=== PATIENT | female | born 1990 | race Caucasian/White ===

== ENCOUNTER 2022-05-18 11:33 | Emergency (ER) | payer MEDICAID, SELFPAY ==
--- NOTE | ~2022-05-18 | XR_ITS ---
EXAMINATION: XR CHEST 2 VIEWS CLINICAL INFORMATION: Chest pain. COMPARISON: None. TECHNIQUE: Frontal and lateral views of the chest were obtained. FINDINGS: The heart, great vessels, pulmonary vasculature and mediastinum are normal. The lungs show no focal infiltrate, effusion or pneumothorax. There is no acute osseous abnormality. XR/XR chest 2V IMPRESSION: No active cardiopulmonary disease.
--- NOTE | 2022-05-18 11:35 | ECG_ITS ---
Test Reason : chest pain Blood Pressure : / mmHG Vent. Rate : 086 BPM Atrial Rate : 086 BPM P-R Int : 132 ms QRS Dur : 080 ms QT Int : 342 ms P-R-T Axes : 076 072 033 degrees QTc Int : 409 ms Normal sinus rhythm with sinus arrhythmia Nonspecific ST abnormality Abnormal ECG No previous ECGs available Referred By: Generic ED Physician Electronically Signed By:RICHA POLK
[2022-05-18 11:58] VITALS: BP 139/96; PULSE 103; RESP 16; TEMP 37.2; O2SAT 100; BMI 25.1
--- NOTE | 2022-05-18 12:00 | ED.CHESTPAIN ---
HPI - Chest Pain General Chief Complaint: Chest Pain Stated Complaint: Chest Pain Time Seen by Provider: 05/18/22 11:55 Source: patient Mode of arrival: ambulatory History of Present Illness HPI narrative: 31-year-old female with no significant past medical history presents to the ED complaining of intermittent substernal chest pressure/tightness radiating to neck x5 days which became more constant the past few days. Patient was sent in from PCPs office for CP and abnormal EKG. Patient admits pain worse with exertion, walking up the stairs, and leaning forward. Reports father with history of MT, no personal history of heart disease. Denies oral OCPs, cigarette smoking, recent travel, SOB, pedal edema, nausea /vomiting MD complaint: chest pain Related Data Allergies Allergy/AdvReac Type Severity Reaction Status Date / Time No Known Allergies Allergy Verified 05/18/22 12:01 Review of Systems Review of Systems: Constitutional: No Fever, No Chills, No Fatigue, No Malaise ENT/Mouth: No Ear Pain, No Nasal Congestion, No sore throat, No Rhinorrhea, No Swallowing Difficulty Eyes: No Eye Pain, No Swelling, No Redness Cardiovascular: + Chest Pain, No SOB, No Dyspnea on Exertion, No Orthopnea, No Edema, No Palpitations Respiratory: No Cough, No Sputum, No Dyspnea Gastrointestinal: No Nausea, No Vomiting, No Diarrhea, No Constipation, No Abdominal pain Genitourinary: No Dysuria, No Urinary Frequency, No Hematuria, No Flank Pain Musculoskeletal: No joint pain, No Myalgias, No Joint Swelling Skin: No Skin Lesions, No rash Neuro: No Weakness, No Numbness, No Paresthesias, No Loss of Consciousness, No Dizziness, No Headache Yes all other systems are reviewed and are negative Constitutional: Constitutional: Reports as per [facility] Past Medical History Attestation statement: The following information was validated with the patient. Family History Family History (Updated 05/18/22 @ 12:59 by Niraj Garcia MD) Father Coronary artery disease Social History Social History Smoked in Last 30 Days: No Use of substances other than those prescribed or required for medical reasons: No Advance Directives: No Advance Directives Information Provided: Yes Patient : No Physical Exam Vital Signs: Vital Signs: Last Vital Signs Temp 99.2 F 05/18/22 16:11 Pulse 62 05/18/22 16:11 Resp 16 05/18/22 16:11 BP 116/71 05/18/22 16:11 Pulse Ox 97 05/18/22 16:11 O2 Del Method 05/18/22 16:11 BMI result Body Mass Index 25.4 Const: General: cooperative, healthy appearing and no acute distress Orientation/consciousness: patient oriented x3 Limitations: no limitations HEENT: Head: Yes normal to inspection and Yes atraumatic Ears: hearing grossly normal bilaterally General nose exam: Normal external nose present Face and sinus: Yes normal facial exam Eyes: General: appearance normal, both eyes and all related structures EOM: EOMs intact bilaterally Neck: Neck: Yes normal visual inspection and Yes no meningeal signs Chest: Chest palpation & inspection: normal inspection of the chest, no crepitus and no tenderness Resp: Effort & Inspection: normal respiratory effort and no respiratory distress Auscultation: clear to auscultation bilaterally, no crackles, no rales, no rhonchi and no wheezes Cardio: Rate: regular rate and tachycardic Heart sounds: S1 normal heart sound present and S2 normal heart sound present GI: Inspection: Yes normal to inspection Palpation (GI): Soft to palpation, nontender, no guarding and not rigid Skin: Rashes: no rashes Wounds: no wounds Neuro: General: patient oriented x3, tone normal and no meningeal signs Gait exam (Neuro): Normal gait present Extrem: General: Yes normal to inspection, Yes no pedal edema and Yes no calf tenderness Course Course Course Narrative: -1233-- consult cardiology Dr. Garcia who recommended stat echo and initiating patient on heparin as well as 50 mg of metoprolol and atorvastatin - [facility] Dr. Garcia arranged transfer/accepting, however waiting bed placement, no available beds at this time. - initial troponin 8.8 will obtain a repeat XR chest 2V IMPRESSION: No active cardiopulmonary disease.? 1500--Transthoracic Echocardiogram Conclusions: - The left ventricular systolic function is normal.? The visually estimated ejection fraction is between 60-65%. ? - The apical septum, mid inferoseptal, and mid anteroseptal? ? ? segments are hypokinetic.? - No obvious valvular pathology seen on this study. > awaiting bed placement at [facility]. accepting physician Dr. Penny Medications Administered Generic Name Dose Route Start Last Admin Trade Name Freq PRN Reason Stop Dose Admin Heparin Sodium/Sodium Chloride 25,000 unit in 250 mls @ 0 mls/hr 05/18/22 14:00 05/18/22 14:03 Heparin Sodium,Porcine/1/2ns IVCONT 12 units/kg/hr .Q0M GIFTY 7.82 mls/hr Administration Protocol Per Protocol Discontinued Medications Generic Name Dose Route Start Last Admin Trade Name Freq PRN Reason Stop Dose Admin Al Hydroxide/Mg Hydroxide 30 ml 05/18/22 12:06 05/18/22 12:32 Magnesium Hydrox/Alum Hydrox 30 Ml Oral.Susp PO 05/18/22 12:07 30 ml ONCE ONE Administration Aspirin 324 mg 05/18/22 12:20 05/18/22 12:31 Aspirin 81 Mg Tab.Chew PO 05/18/22 12:21 324 mg ONCE ONE Administration Atorvastatin Calcium 80 mg 05/18/22 13:26 05/18/22 13:59 Atorvastatin Calcium 80 Mg Tablet PO 05/18/22 13:27 80 mg ONCE ONE Administration Metoprolol Tartrate 50 mg 05/18/22 12:49 05/18/22 13:59 Metoprolol Tartrate 50 Mg Tablet PO 05/18/22 12:50 50 mg ONCE ONE Administration Protocol Morphine Sulfate 2 mg 05/18/22 12:20 05/18/22 12:33 Morphine Sulfate 2 Mg/Ml Cartridge IVPUSH 05/18/22 12:21 2 mg ONCE ONE Administration Protocol Ondansetron HCl 4 mg 05/18/22 12:06 05/18/22 12:31 Ondansetron Hcl 4 Mg/2 Ml Vial IVPUSH 05/18/22 12:07 4 mg ONCE ONE Administration Medical Decision Making Medical Decision Making MDM Narrative: 31-year-old female with no significant past medical history presents to the ED complaining of intermittent substernal chest pressure/tightness radiating to neck x5 days which became more constant the past few days. on exam mildly tachycardic to 103, chest pain not reproducible, lungs CTA, nontoxic appearing, EKG from office concerning, EKG in the ED with resolved changes, will consult Cardiology immediately. concern for ACS vs possible pericarditis/myocarditis. lower suspicion for PE/dissection or CHF plan: EKG, labs, CXR, IV morphine, aspirin, cardiology consult Please refer to course for remaining clinical decision making, interpretation of labs/imaging results, and discussions with consultants and/or family members. Differential Diagnosis Differential Diagnoses: The differential diagnosis associated with the presentation includes as above Consult Healthcare Provider Management of the patient was discussed with: Marketing Producer Lab Data [facility] Lab Attestation statement: I reviewed the patient's lab results. 05/18/22 12:21 05/18/22 12:21 Labs: Lab Results 05/18/22 05/18/22 05/18/22 Range/Units 12:20 12:21 12:21 WBC 5.7 (4.8-10.8) X10*3/uL RBC 4.39 (4.20-5.50) X10*6/uL Hgb 12.4 (12.0-16.0) g/dl Hct 36.1 L (37.0-47.0) % MCV 82.2 (80.0-98.0) fL MCH 28.2 (27.0-33.0) pg MCHC 34.3 (31.0-35.0) g/dl RDW 12.3 (11.0-16.0) % Plt Count 257 (160-400) X10*3/uL MPV 9.2 L (9.4-12.3) fL Immature Gran % (Auto) 0.4 (0.0-0.4) % Neut % (Auto) 75.6 H (45-73) % Lymph % (Auto) 17.8 L (20-40) % [place] % (Auto) 5.1 (2-11) % Eos % (Auto) 0.7 (0-4) % Baso % (Auto) 0.4 (0-2) % Lymph # (Auto) 1.0 L (1.2-4.9) X10*3/uL [place] # (Auto) 0.3 (0.1-1.2) X10*3/uL Eos # (Auto) 0.0 (0.0-0.4) X10*3/uL Baso # (Auto) 0.0 (0.0-0.2) X10*3/uL Abs Immat Gran (auto) 0.02 (0.00-0.03) X10*3/uL Absolute Neuts (auto) 4.3 (2.0-8.3) x10*3/uL Absolute Nucleated RBC 0.000 (0.0-0.012) X10*3/uL Nucleated RBC % (auto) 0.0 (0.0-0.2) /100WBC ESR 10 (0-20) MM/HR PT (10.0-13.1) SEC INR (0.9-1.1) APTT (26.0-36.4) SEC Sodium (135-145) mmol/L Potassium (3.3-5.1) mmol/L Chloride (96-108) mmol/L Carbon Dioxide (22-29) mmol/L Anion Gap (12-20) BUN (9-16) mg/dL Creatinine (0.5-1.4) mg/dL Estim Creat Clear Calc Estimated GFR Random Glucose (60-115) mg/dL Calcium (8.4-10.2) mg/dL Magnesium (1.6-2.6) mg/dL Total Bilirubin (0.0-1.0) mg/dL Direct Bilirubin (0.0-0.5) mg/dL AST (5-31) U/L ALT (0-31) U/L Alkaline Phosphatase (39-117) U/L Troponin I High Sens (<3.5-17.0) ng/L C-Reactive Protein (< or = 0.50) mg/dL B-Natriuretic Peptide 23 (<100) pg/mL Total Protein (6.5-8.0) g/dL Albumin (3.5-5.0) g/dL Lipase (8-78) U/L Beta HCG, Quant mIU/mL Urine Test (NEGATIVE) COVID-19 (ALLYN) (Negative) COVID-19 Clin Com Influenza Type A (MADAI) (Negative) Influenza Type B (MADAI) (Negative) Influenza A & B Note 05/18/22 05/18/22 05/18/22 Range/Units 12:21 12:21 12:21 WBC (4.8-10.8) X10*3/uL RBC (4.20-5.50) X10*6/uL Hgb (12.0-16.0) g/dl Hct (37.0-47.0) % MCV (80.0-98.0) fL MCH (27.0-33.0) pg MCHC (31.0-35.0) g/dl RDW (11.0-16.0) % Plt Count (160-400) X10*3/uL MPV (9.4-12.3) fL Immature Gran % (Auto) (0.0-0.4) % Neut % (Auto) (45-73) % Lymph % (Auto) (20-40) % Macon % (Auto) (2-11) % Eos % (Auto) (0-4) % Baso % (Auto) (0-2) % Lymph # (Auto) (1.2-4.9) X10*3/uL Macon # (Auto) (0.1-1.2) X10*3/uL Eos # (Auto) (0.0-0.4) X10*3/uL Baso # (Auto) (0.0-0.2) X10*3/uL Abs Immat Gran (auto) (0.00-0.03) X10*3/uL Absolute Neuts (auto) (2.0-8.3) x10*3/uL Absolute Nucleated RBC (0.0-0.012) X10*3/uL Nucleated RBC % (auto) (0.0-0.2) /100WBC ESR (0-20) MM/HR PT 11.5 (10.0-13.1) SEC INR 1.0 (0.9-1.1) APTT 32.0 (26.0-36.4) SEC Sodium 142 (135-145) mmol/L Potassium 4.1 (3.3-5.1) mmol/L Chloride 111 H (96-108) mmol/L Carbon Dioxide 23 (22-29) mmol/L Anion Gap 12 (12-20) BUN 9 (9-16) mg/dL Creatinine 0.90 (0.5-1.4) mg/dL Estim Creat Clear Calc 81.0 Estimated GFR > 60 Random Glucose 119 H (60-115) mg/dL Calcium 9.2 (8.4-10.2) mg/dL Magnesium 1.7 (1.6-2.6) mg/dL Total Bilirubin 0.5 (0.0-1.0) mg/dL Direct Bilirubin 0.2 (0.0-0.5) mg/dL AST 23 (5-31) U/L ALT 21 (0-31) U/L Alkaline Phosphatase 57 (39-117) U/L Troponin I High Sens 8.8 (<3.5-17.0) ng/L C-Reactive Protein 0.12 (< or = 0.50) mg/dL B-Natriuretic Peptide (<100) pg/mL Total Protein 6.8 (6.5-8.0) g/dL Albumin 4.3 (3.5-5.0) g/dL Lipase 25 (8-78) U/L Beta HCG, Quant < 2 mIU/mL Urine Test (NEGATIVE) COVID-19 (ALLYN) (Negative) COVID-19 Clin Com Influenza Type A (MADAI) (Negative) Influenza Type B (MADAI) (Negative) Influenza A & B Note 05/18/22 05/18/22 05/18/22 Range/Units 12:21 12:21 13:02 WBC (4.8-10.8) X10*3/uL RBC (4.20-5.50) X10*6/uL Hgb (12.0-16.0) g/dl Hct (37.0-47.0) % MCV (80.0-98.0) fL MCH (27.0-33.0) pg MCHC (31.0-35.0) g/dl RDW (11.0-16.0) % Plt Count (160-400) X10*3/uL MPV (9.4-12.3) fL Immature Gran % (Auto) (0.0-0.4) % Neut % (Auto) (45-73) % Lymph % (Auto) (20-40) % Macon % (Auto) (2-11) % Eos % (Auto) (0-4) % Baso % (Auto) (0-2) % Lymph # (Auto) (1.2-4.9) X10*3/uL Macon # (Auto) (0.1-1.2) X10*3/uL Eos # (Auto) (0.0-0.4) X10*3/uL Baso # (Auto) (0.0-0.2) X10*3/uL Abs Immat Gran (auto) (0.00-0.03) X10*3/uL Absolute Neuts (auto) (2.0-8.3) x10*3/uL Absolute Nucleated RBC (0.0-0.012) X10*3/uL Nucleated RBC % (auto) (0.0-0.2) /100WBC ESR (0-20) MM/HR PT (10.0-13.1) SEC INR (0.9-1.1) APTT (26.0-36.4) SEC Sodium (135-145) mmol/L Potassium (3.3-5.1) mmol/L Chloride (96-108) mmol/L Carbon Dioxide (22-29) mmol/L Anion Gap (12-20) BUN (9-16) mg/dL Creatinine (0.5-1.4) mg/dL Estim Creat Clear Calc Estimated GFR Random Glucose (60-115) mg/dL Calcium (8.4-10.2) mg/dL Magnesium (1.6-2.6) mg/dL Total Bilirubin (0.0-1.0) mg/dL Direct Bilirubin (0.0-0.5) mg/dL AST (5-31) U/L ALT (0-31) U/L Alkaline Phosphatase (39-117) U/L Troponin I High Sens (<3.5-17.0) ng/L C-Reactive Protein (< or = 0.50) mg/dL B-Natriuretic Peptide (<100) pg/mL Total Protein (6.5-8.0) g/dL Albumin (3.5-5.0) g/dL Lipase (8-78) U/L Beta HCG, Quant mIU/mL Urine Test NEGATIVE (NEGATIVE) COVID-19 (ALLYN) Negative (Negative) COVID-19 Clin Com See Note Influenza Type A (MADAI) Negative (Negative) Influenza Type B (MADAI) Negative (Negative) Influenza A & B Note See Note 05/18/22 Range/Units 16:18 WBC (4.8-10.8) X10*3/uL RBC (4.20-5.50) X10*6/uL Hgb (12.0-16.0) g/dl Hct (37.0-47.0) % MCV (80.0-98.0) fL MCH (27.0-33.0) pg MCHC (31.0-35.0) g/dl RDW (11.0-16.0) % Plt Count (160-400) X10*3/uL MPV (9.4-12.3) fL Immature Gran % (Auto) (0.0-0.4) % Neut % (Auto) (45-73) % Lymph % (Auto) (20-40) % [place] % (Auto) (2-11) % Eos % (Auto) (0-4) % Baso % (Auto) (0-2) % Lymph # (Auto) (1.2-4.9) X10*3/uL Macon # (Auto) (0.1-1.2) X10*3/uL Eos # (Auto) (0.0-0.4) X10*3/uL Baso # (Auto) (0.0-0.2) X10*3/uL Abs Immat Gran (auto) (0.00-0.03) X10*3/uL Absolute Neuts (auto) (2.0-8.3) x10*3/uL Absolute Nucleated RBC (0.0-0.012) X10*3/uL Nucleated RBC % (auto) (0.0-0.2) /100WBC ESR (0-20) MM/HR PT (10.0-13.1) SEC INR (0.9-1.1) APTT (26.0-36.4) SEC Sodium (135-145) mmol/L Potassium (3.3-5.1) mmol/L Chloride (96-108) mmol/L Carbon Dioxide (22-29) mmol/L Anion Gap (12-20) BUN (9-16) mg/dL Creatinine (0.5-1.4) mg/dL Estim Creat Clear Calc Estimated GFR Random Glucose (60-115) mg/dL Calcium (8.4-10.2) mg/dL Magnesium (1.6-2.6) mg/dL Total Bilirubin (0.0-1.0) mg/dL Direct Bilirubin (0.0-0.5) mg/dL AST (5-31) U/L ALT (0-31) U/L Alkaline Phosphatase (39-117) U/L Troponin I High Sens 19.1 H D (<3.5-17.0) ng/L C-Reactive Protein (< or = 0.50) mg/dL B-Natriuretic Peptide (<100) pg/mL Total Protein (6.5-8.0) g/dL Albumin (3.5-5.0) g/dL Lipase (8-78) U/L Beta HCG, Quant mIU/mL Urine Test (NEGATIVE) COVID-19 (ALLYN) (Negative) COVID-19 Clin Com Influenza Type A (MADAI) (Negative) Influenza Type B (MADAI) (Negative) Influenza A & B Note Independent Interpretation I performed an independent interpretation of an: EKG ( my interpretation EKG is normal sinus rhythm with sinus arrhythmia at a rate of 86. Nonspecific ST changes. No STEMI) Radiology Impression Discussion of test interpretation with radiology: I have reviewed the radiologist's reading. External Record Review External record reviewed: Office record and Outpatient record Prescription Management I considered prescription management with: Pain Medication Critical Care Time Critical Care Time Critical Care Time: Yes Total Critical Care Time: 60 Attestation: I have personally provided critical care time exclusive of time spent on separately billable procedures. Time includes review of lab data, radiology results, discussion with consultants, and monitoring for potential decompensation. Intervention performed as documented. Discharge Plan Discharge Clinical Impression: Cardiac ischemia Patient Disposition: [facility] Transfer Details: [facility]
[2022-05-18 12:07] VITALS: PULSE 85
--- NOTE | 2022-05-18 12:25 | CA_ITS ---
Transthoracic Echocardiogram Patient (Last, First, Middle): Mabel Chen, Gender: Female Date of : 1990 Age: 31 Procedure Date: 05/18/2022 Procedure Type: Transthoracic Echocardiogram Location: ER Height: 160.02 cm Weight: 64.41 kg BSA: 1.67 m2 Heart Rate: 83 bpm BP: 146 / 93 mmHg Field Pipelines Supervisor: SB Referring MD: Carole SEN Symptoms: CP, abnl EKG Study Quality: Adequate ECG Rhythm: Sinus Conclusions: - The left ventricular systolic function is normal. The visually estimated ejection fraction is between 60-65%. - The apical septum, mid inferoseptal, and mid anteroseptal segments are hypokinetic. - No obvious valvular pathology seen on this study. Findings Left Ventricle Normal left ventricular cavity size. There is normal left ventricular wall thickness. The left ventricular systolic function is normal. The visually estimated ejection fraction is between 60-65%. There is evidence of regional wall motion abnormalities. Diastolic function is normal for age. Wall Motion Rest Echo Findings The apical septum, mid inferoseptal, and mid anteroseptal segments are hypokinetic. Right Ventricle Normal right ventricular cavity size and systolic function. Atria Both atria are normal in size. Aortic Valve The aortic valve structure and function is likely normal. There is no aortic valve stenosis. There is no aortic valve regurgitation. Mitral Valve The mitral valve appears normal. There is trace mitral valve regurgitation. There is no mitral valve stenosis. Pulmonic Valve The pulmonic valve is likely normal. Tricuspid Valve Normal tricuspid valve structure. There is trace tricuspid valve regurgitation. There is no evidence of pulmonary hypertension. Great Vessels The asc aorta and aortic arch are normal in size. Venous The inferior vena cava is normal in size and collapses greater than 50% with inspiration. Pericardium/Pleural There is no evidence of pericardial effusion. Prior Study Comparison No prior study available for comparison. Recommendations, Care & Conclusions No obvious valvular pathology seen on this study. Measurements 2D Linear Measurements IVSd: 0.62 0.6-0.9/0.6-1.0 cm LVIDd: 4.32 3.9-5.3/4.2-5.9 cm LVIDd Index: 2.59 2.4-3.2/2.2-3.1 cm/m2 LVIDs: 2.58 2.0-3.6 cm LVPWd: 0.57 0.7-1.1 cm LA Diam: 3.30 2.7-3.8/3.0-4.0 cm LAIDs Index: 1.98 1.5-2.3 cm/m2 LV Mass: 90.51 67-162/88-224 g LV Mass Index: 54.20 43-95/49-115 g/m2 LVOT Diam: 1.90 3.0+(-)1.3 cm 2D Systolic Function EF 4C: 64.10 >55% EF 2C: 78.40 >55% EF BiP: 72.80 >55% Mitral Valve MV Pk E: 1.50 MV PK A: 0.68 MV Decel Time: 162.00 E/A: 2.20 E'Lateral: 22.30 E'Medial: 14.00 E/E' Med: 10.70 E/E' Lat: 6.70 PHT: 47.00 MVA PHT: 4.68 Decel Fountain: 9.25 Aortic Valve AoV Pk Osvaldo: 1.68 AoV Pk Grad: 11.00 ROLF: 2.37 LVOT LVOT Pk Osvaldo: 1.40 LVOT Mn Osvaldo: 0.92 LVOT VTI: 0.26 LVOT Pk Grad: 8.00 LVOT Mn Grad: 4.00 LVOT Diam: 1.90 LVOT Area: 2.84 Diastolic Function MV Pk E: 1.50 MV Pk A: 0.68 E/A: 2.20 E'Medial: 14.00 E/E' Med: 10.70 E' Laterial: 22.30 E/E' Lat: 6.70 Right Ventricle TAPSE (mm): 24.20 TVS' Osvaldo: 16.80 Tricuspid Valve TR Pk Osvaldo: 2.61 TR Pk Grad: 27.00 RA Press: 3.00 RVSP: 30.00 Great Vessels Aorta Sinus of Valsalva: 2.60 2.0-3.5 cm Ao Asc: 2.50 2.1-3.4 cm Ao Arch: 2.10 Ao Desc: 1.70 Pulmonary Valve PV Pk Osvaldo: 1.31 Peak PV Grad: 7.00 Updated in Other Vendor System with Status of Final Niraj Garcia MD electronically signed on 05/18/2022 3:03:40 PM with status of Final
[2022-05-18 12:28] LABS: MANUAL DIFF FLAG NO
--- NOTE | 2022-05-18 12:29 | PC.NURSE ---
Pt is alert/oriented, states 5 days of chest pain mid chest up b/l sides of neck into jaw but worse on right side. States pain worse with exertion. Denies SOB or dizziness. Denies cough, fever or chills. Skin pwd. SR on monitor rate 80s at this time.
[2022-05-18 12:30] LABS: Basophils Percent Auto 0.4 % (0-2); Eosinophils Percent Auto 0.7 % (0-4); Hematocrit 36.1 % (37.0-47.0); Hemoglobin 12.4 g/dl (12.0-16.0); Imm Gran Abs Auto 0.02 X10*3/uL (0.00-0.03); Imm Gran Pct Auto 0.4 % (0.0-0.4); Lymphocytes Percent Auto 17.8 % (20-40); Mean Corpuscular HGB Conc 34.3 g/dl (31.0-35.0); Mean Corpuscular Hemoglobin 28.2 pg (27.0-33.0); Mean Corpuscular Volume 82.2 fL (80.0-98.0); Mean Platelet Volume 9.2 fL (9.4-12.3); Monocytes Absolute Auto 0.3 X10*3/uL (0.1-1.2); Monocytes Percent Auto 5.1 % (2-11); Neutrophils Absolute Auto 4.3 x10*3/uL (2.0-8.3); Neutrophils Percent Auto 75.6 % (45-73); Platelet Count 257 X10*3/uL (160-400); Red Blood Count 4.39 X10*6/uL (4.20-5.50); Red Cell Distribution Width 12.3 % (11.0-16.0); White Blood Count 5.7 X10*3/uL (4.8-10.8)
[2022-05-18] MEDS: ondansetron HCL 4 MG/2 ML VIAL IVPUSH (12:31)
[2022-05-18] MEDS: Aspirin 81 MG TAB.CHEW 324 MG PO (12:31)
[2022-05-18] MEDS: Magnesium Hydrox/Alum Hydrox 30 ML ORAL.SUSP PO (12:32)
[2022-05-18] MEDS: Morphine Sulfate 2 MG/ML CARTRIDGE IVPUSH (12:33)
[2022-05-18 12:41] LABS: Prothrombin Time 11.5 SEC (10.0-13.1)
[2022-05-18 12:49] LABS: COVID-19 Test Negative (Negative); IDNOW Serial# 9DB6401D; IDNOW Serial# BCCEAD1C; Influenza A Negative (Negative); Influenza B2 Negative (Negative)
[2022-05-18 12:52] LABS: Alanine Aminotransferase 21 U/L (0-31); Albumin Level 4.3 g/dL (3.5-5.0); Alkaline Phosphatase 57 U/L (39-117); Anion Gap 12 (12-20); Aspartate Amino Transferase 23 U/L (5-31); Bilirubin Direct 0.2 mg/dL (0.0-0.5); Bilirubin Total 0.5 mg/dL (0.0-1.0); Blood Urea Nitrogen 9 mg/dL (9-16); C Reactive Protein 0.12 mg/dL (< or = 0.50); Calcium 9.2 mg/dL (8.4-10.2); Carbon Dioxide 23 mmol/L (22-29); Chloride 111 mmol/L (96-108); Estimated Glomerular Filt Rate > 60; Glucose Random 119 mg/dL (60-115); Lipase 25 U/L (8-78); Magnesium 1.7 mg/dL (1.6-2.6); Potassium 4.1 mmol/L (3.3-5.1); Sodium 142 mmol/L (135-145); Total Protein 6.8 g/dL (6.5-8.0)
[2022-05-18 12:53] LABS: B Type Natriuretic Peptide 23 pg/mL (<100)
[2022-05-18 12:54] LABS: Troponin-I High Sensitivity 8.8 ng/L (<3.5-17.0)
--- NOTE | 2022-05-18 12:56 | P.CONCA_ITS ---
History of Present Illness History of Present Illness Date of Service: 05/18/22 Chief complaint: Chest Pain Narrative: This is a cardiology consultation regarding abnormal EKG as well as chest pain. Patient does not have any known cardiac issues. No history of any coronary artery disease or myocardial infarction or cardiomyopathy or in fact any cardiac issues whatsoever. She states that for the last 5 days or so she has been getting chest pain like a burning type sensation. This happens whenever she is active/exerting, like walking her dog. This also goes up into her jaw area and also into her back. Overall, sounds very suggestive of angina. Hence went to PCP's office who referred her here as EKG also looks very abnormal. Currently, she is pain free. Review of Systems Review of Systems: Yes all other systems are reviewed and are negative Constitutional: Constitutional: Reports as per HPI Eyes: Eyes: Reports as per HPI ENT: Reports as per HPI Cardiovascular: Cardiovascular: Reports as per HPI, Denies acrocyanosis, Denies cool extremities, Reports chest pain, Denies leg edema, Denies lightheade dness, Denies palpitations and Denies dyspnea Respiratory: Respiratory: Reports as per HPI, Reports no additional respiratory complaints and Denies dyspnea Gastrointestinal: Gastrointestinal: Reports as per HPI and Reports no additional gastrointestinal complaints Genitourinary: Genitourinary: Reports as per HPI Musculoskeletal: Musculoskeletal: Reports no additional musculoskeletal complaints and Reports as per HPI Integumentary/Breasts: Skin/Breast: Reports system reviewed and no additional complaints, except as docu Neurologic: Reports system reviewed and no additional complaints, except as documented and Reports as per HPI Psychiatric: Psychiatric: Reports no additional psychiatric complaints and Reports as per HPI Endocrine: Endocrine: Reports no additional endocrine complaints, Reports as per HPI and Denies palpitations Hematologic/Lymphatic: Hematologic/Lymphatic: Reports no additional hematologic/lymphatic complaints and Reports as per HPI Allergic/Immunologic: Allergic/Immunologic: Reports no additional allergic/immunologic complaints and Reports as per HPI [facility] Past Medical History Cognitive capacity: No significant past medical history Family History Family History (Updated 05/18/22 @ 12:59 by Niraj Garcia MD) Father Coronary artery disease Social History Social History Smoked in Last 30 Days: No Use of substances other than those prescribed or required for medical reasons: No Advance Directives: No Advance Directives Information Provided: Yes Patient : No Meds Allergies Allergy/AdvReac Type Severity Reaction Status Date / Time No Known Allergies Allergy Verified 05/18/22 12:01 Active Medications: Current Medications Heparin Sodium (Porcine) (Heparin Sodium,Porcine 5,000 Unit/Ml Vial) 2,600 unit 40 unit/kg (2600 unit) IVPUSH PROTOCOL BOLUS PRN; Protocol PRN Reason: 40 unit/kg - Heparin Protocol Heparin Sodium (Porcine) (Heparin Sodium,Porcine 5,000 Unit/Ml Vial) 5,200 unit 80 unit/kg (5200 unit) IVPUSH PROTOCOL BOLUS PRN; Protocol PRN Reason: 80 unit/kg - Heparin Protocol Heparin Sodium/Sodium Chloride (Heparin Sodium,Porcine/1/2ns) 25,000 unit in 250 mls @ 0 mls/hr IVCONT .Q0M GIFTY; Protocol Physical Exam Vital Signs: Vital Signs: Last Vital Signs Temp 98.9 F 05/18/22 11:58 Pulse 103 H 05/18/22 11:58 Resp 16 05/18/22 11:58 BP 139/96 H 05/18/22 11:58 Pulse Ox 100 05/18/22 11:58 O2 Del Method 05/18/22 11:58 BMI result Body Mass Index 25.1 Const: General: comfortable and no acute distress Orientation/consciou sness: patient oriented x3 HEENT: Other: Unremarkable Head: Yes normal to inspection Neck: Neck: Yes normal visual inspection Chest: Chest palpation & inspection: normal inspection of the chest Resp: Auscultation: clear to auscultation bilaterally Cardio: Palpation: normal PMI Heart sounds: S1 normal heart sound present, S2 normal heart sound present, no gallops, no murmurs and no rubs GI: Palpation (GI): Soft to palpation Back/Spine/Pelvis: Other: unremarkable Skin: General skin exam: no rashes or lesions noted Neuro: General: patient oriented x3 Extrem: General: Yes normal to inspection Psych: Mental Status: mental status grossly normal Objective Labs and Meds 05/18/22 12:21 05/18/22 12:21 Lab results: Laboratory Results - last 24 hr 05/18/22 05/18/22 05/18/22 12:20 12:21 12:21 WBC 5.7 RBC 4.39 Hgb 12.4 Hct 36.1 L MCV 82.2 MCH 28.2 MCHC 34.3 RDW 12.3 Plt Count 257 MPV 9.2 L Immature Gran % (Auto) 0.4 Neut % (Auto) 75.6 H Lymph % (Auto) 17.8 L Craig % (Auto) 5.1 Eos % (Auto) 0.7 Baso % (Auto) 0.4 Lymph # (Auto) 1.0 L Craig # (Auto) 0.3 Eos # (Auto) 0.0 Baso # (Auto) 0.0 Abs Immat Gran (auto) 0.02 Absolute Neuts (auto) 4.3 Absolute Nucleated RBC 0.000 Nucleated RBC % (auto) 0.0 PT INR Sodium 142 Potassium 4.1 Chloride 111 H Carbon Dioxide 23 Anion Gap 12 BUN 9 Creatinine 0.90 Estim Creat Clear Calc 81.0 Estimated GFR > 60 Random Glucose 119 H Calcium 9.2 Magnesium 1.7 Total Bilirubin 0.5 Direct Bilirubin 0.2 AST 23 ALT 21 Alkaline Phosphatase 57 Troponin I High Sens C-Reactive Protein 0.12 B-Natriuretic Peptide 23 Total Protein 6.8 Albumin 4.3 Lipase 25 COVID-19 (ALLYN) COVID-19 Clin Com Influenza Type A (MADAI) Influenza Type B (MADAI) Influenza A & B Note 05/18/22 05/18/22 05/18/22 12:21 12:21 12:21 WBC RBC Hgb Hct MCV MCH MCHC RDW Plt Count MPV Immature Gran % (Auto) Neut % (Auto) Lymph % (Auto) Craig % (Auto) Eos % (Auto) Baso % (Auto) Lymph # (Auto) Craig # (Auto) Eos # (Auto) Baso # (Auto) Abs Immat Gran (auto) Absolute Neuts (auto) Absolute Nucleated RBC Nucleated RBC % (auto) PT 11.5 INR 1.0 Sodium Potassium Chloride Carbon Dioxide Anion Gap BUN Creatinine Estim Creat Clear Calc Estimated GFR Random Glucose Calcium Magnesium Total Bilirubin Direct Bilirubin AST ALT Alkaline Phosphatase Troponin I High Sens 8.8 C-Reactive Protein B-Natriuretic Peptide Total Protein Albumin Lipase COVID-19 (ALLYN) Negative COVID-19 Clin Com See Note Influenza Type A (MADAI) Influenza Type B (MADAI) Influenza A & B Note 05/18/22 12:21 WBC RBC Hgb Hct MCV MCH MCHC RDW Plt Count MPV Immature Gran % (Auto) Neut % (Auto) Lymph % (Auto) Craig % (Auto) Eos % (Auto) Baso % (Auto) Lymph # (Auto) Craig # (Auto) Eos # (Auto) Baso # (Auto) Abs Immat Gran (auto) Absolute Neuts (auto) Absolute Nucleated RBC Nucleated RBC % (auto) PT INR Sodium Potassium Chloride Carbon Dioxide Anion Gap BUN Creatinine Estim Creat Clear Calc Estimated GFR Random Glucose Calcium Magnesium Total Bilirubin Direct Bilirubin AST ALT Alkaline Phosphatase Troponin I High Sens C-Reactive Protein B-Natriuretic Peptide Total Protein Albumin Lipase COVID-19 (ALLYN) COVID-19 Clin Com Influenza Type A (MADAI) Negative Influenza Type B (MADAI) Negative Influenza A & B Note See Note ECG Interpretation: EKG from the primary care physician's office shows sinus tachycardia at 01:20/Min; there is deep ST depressions in the inferior as well as anterolateral leads. Slight ST elevation in AVR. In the repeat EKG done in the ER, sinus rhy thm at 86/Min. The ST depressions have improved significantly. Assessment and Plan (1) Unstable angina: Status: Acute Plan EKG while she was having sinus tachycardia showed deep ST depressions. Repeat EKG shows much improved ST depression. High sensitivity troponin within normal limits. Cardiac BNP is also within normal limits. Other lab seem unremarkable. Overall, history suggestive of unstable angina. We will treat her accordingly. IV heparin, aspirin, beta-blockers and statins. Echocardiogram. test. After, likely transfer to [facility] for cardiac catheterization tomorrow. Discussed with Dr. So. Time Spent With Patient Time: Total time managing care of this patient today ____ minutes. Procedures Date of Service Date of Service: 05/18/22
[2022-05-18 13:11] LABS: Erythrocyte Sedimentation Rate 10 MM/HR (0-20)
[2022-05-18 13:14] LABS: UPreg QC Valid YES; Urine Pregnancy NEGATIVE (NEGATIVE)
[2022-05-18 13:28] VITALS: BMI 25.4
--- NOTE | 2022-05-18 13:47 | PC.NURSE ---
Pt states pain at this time burning in nature 06/05, right sided. Echo completed. Awaiting verification of Heparin gtt by pharmacy.
[2022-05-18 13:48] VITALS: BP 142/84; PULSE 92; RESP 16; O2SAT 100
[2022-05-18] MEDS: Atorvastatin Calcium 80 MG TABLET PO (13:59)
[2022-05-18] MEDS: Metoprolol Tartrate 50 MG TABLET PO (13:59)
[2022-05-18 14:03] LABS: HCG Quantitative < 2 mIU/mL
[2022-05-18] MEDS: Heparin Sodium,Porcine/1/2NS 25,000 UNIT/250 ML IV.SOLN 7.82 UNIT IVCONT (14:03)
--- NOTE | 2022-05-18 14:11 | PC.NURSE ---
Second IV acess obtained Heparin gtt started at 12/units/kg/hr, PTT HD order to be drawn at 1999 Pt reports mild 2/10 right sided chest burning Sinus tach on tele rate 113
--- NOTE | 2022-05-18 14:45 | MHC.EDTECH ---
@245 called [facility] transfer line to check the status of the transfer. The individual on the phone stated that the patient was accepted to the hospital. However, they are still waiting for a room assignment at this time and it may take a little bit. She stated she would call when they got the assignment.
--- NOTE | 2022-05-18 16:00 | MHC.EDTECH ---
THIS PCT ASSUMRD CARE OF PATIENT AT 1600 ,VITALS SIGN TAKEN ,TROP DRAWN AND SEND TO LAB,PATIENT RESTING WAITING TO BE TRANSFER ,CALL [facility] WITHIN REACH .
[2022-05-18 16:04] VITALS: BP 113/73; PULSE 55; RESP 16; O2SAT 100
--- NOTE | 2022-05-18 16:05 | PC.NURSE ---
Denies pain at this time. Skin pwd. Sinus bradynow on tele, increases with activity or talking to 70-80s Skin pwd
[2022-05-18 16:11] VITALS: BP 116/71; PULSE 62; RESP 16; TEMP 37.3; O2SAT 97
--- NOTE | 2022-05-18 16:53 | PC.NURSE ---
[facility]
[2022-05-18 16:56] LABS: Troponin-I High Sensitivity 19.1 ng/L (<3.5-17.0)
== END 2022-05-18 17:50 | disposition short-term general hospital (02) ==
PROVIDERS: Physician Assistant; Emergency Provider Emergency Medicine
DX: I25.9 Chronic ischemic heart disease, unspecified (principal); I20.0 Unstable angina; R07.9 Chest pain, unspecified; R00.0 Tachycardia, unspecified; Z20.822 Contact with and (suspected) exposure to COVID-19
CPT/HCPCS: 36415; 71046; 80048; 80076; 81025; 83690; 83735; 83880; 84484; 84702; 85025; 85610; 85652; 85730; 86140; 87502; 87635; 93005; 93306; 96365; 96366; 96375; 99285; J1643; J2270; J2405

== ENCOUNTER 2022-05-28 12:12 | Outpatient (REF) | payer MEDICAID, SELFPAY ==
[2022-06-02 14:23] LABS: Lipoprotein A 161 nmol/L (<75)
== END 2022-05-28 12:13 | disposition home or self-care (01) ==
LOC: HO.LAB 12:12
PROVIDERS: PCP Internal Medicine; Referring Provider Internal Medicine; Visit Provider Internal Medicine Cardiovascular Disease
DX: I25.10 Atherosclerotic heart disease of native coronary artery without angina pectoris (principal); Z98.61 Coronary angioplasty status
CPT/HCPCS: 36415; 83695; 99212

== ENCOUNTER 2022-09-08 10:31 | Outpatient (REF) | payer MEDICAID, SELFPAY | END 2022-09-08 10:32 | disposition home or self-care (01) | LOC: HO.LAB 10:31 | PROVIDERS: PCP Internal Medicine; Referring Provider Internal Medicine; Visit Provider Internal Medicine Cardiovascular Disease | DX: Z13.89 Encounter for screening for other disorder (principal) ==

== ENCOUNTER 2022-09-10 09:43 | Outpatient (REF) | payer MEDICAID, SELFPAY ==
[2022-09-10 11:02] LABS: Cholesterol 107 mg/dL; HDL Cholesterol 51 mg/dL; LDL Cholesterol Calculated 52 mg/dl; Triglycerides 23 mg/dL
[2022-09-16 15:13] LABS: Lipoprotein A 183 nmol/L (<75)
== END 2022-09-10 09:44 | disposition home or self-care (01) ==
LOC: HO.LAB 09:43
PROVIDERS: PCP Internal Medicine; Referring Provider Internal Medicine; Visit Provider Internal Medicine Cardiovascular Disease
DX: E78.41 Elevated Lipoprotein(a) (principal); I25.110 Atherosclerotic heart disease of native coronary artery with unstable angina pectoris
CPT/HCPCS: 80061; 83695

== ENCOUNTER → 2022-09-16 09:31 | Outpatient (BNVA) | payer MEDICAID, SELFPAY | PROVIDERS: PCP Internal Medicine; Referring Provider Internal Medicine; Visit Provider Internal Medicine Cardiovascular Disease | DX: E78.41 Elevated Lipoprotein(a) (principal); I25.10 Atherosclerotic heart disease of native coronary artery without angina pectoris; Z98.61 Coronary angioplasty status | CPT/HCPCS: 93005; 99212 ==

== ENCOUNTER 2022-11-05 09:21 | Outpatient (REF) | payer MEDICAID, SELFPAY ==
[2022-11-05 09:33] LABS: MANUAL DIFF FLAG NO
[2022-11-05 09:50] LABS: Basophils Percent Auto 0.5 % (0-2); Eosinophils Absolute Auto 0.2 X10*3/uL (0.0-0.4); Eosinophils Percent Auto 3.9 % (0-4); Hematocrit 35.8 % (37.0-47.0); Imm Gran Abs Auto 0.01 X10*3/uL (0.00-0.03); Imm Gran Pct Auto 0.2 % (0.0-0.4); Lymphocytes Absolute Auto 0.9 X10*3/uL (1.2-4.9); Lymphocytes Percent Auto 22.1 % (20-40); Mean Corpuscular HGB Conc 33.5 g/dl (31.0-35.0); Mean Corpuscular Volume 83.4 fL (80.0-98.0); Mean Platelet Volume 10.4 fL (9.4-12.3); Monocytes Absolute Auto 0.3 X10*3/uL (0.1-1.2); Monocytes Percent Auto 7.5 % (2-11); Neutrophils Absolute Auto 2.7 x10*3/uL (2.0-8.3); Neutrophils Percent Auto 65.8 % (45-73); Platelet Count 208 X10*3/uL (160-400); Red Blood Count 4.29 X10*6/uL (4.20-5.50); White Blood Count 4.1 X10*3/uL (4.8-10.8)
[2022-11-05 10:43] LABS: Alanine Aminotransferase 36 U/L (0-31); Albumin Level 4.1 g/dL (3.5-5.0); Alkaline Phosphatase 61 U/L (39-117); Anion Gap 9 (12-20); Aspartate Amino Transferase 30 U/L (5-31); Blood Urea Nitrogen 10 mg/dL (9-16); Calcium 9.4 mg/dL (8.4-10.2); Carbon Dioxide 24 mmol/L (22-29); Chloride 109 mmol/L (96-108); Cholesterol 93 mg/dL; Estimated Glomerular Filt Rate > 60; Glucose Random 90 mg/dL (60-115); HDL Cholesterol 58 mg/dL; LDL Cholesterol Calculated 30 mg/dl; Potassium 4.2 mmol/L (3.3-5.1); Sodium 138 mmol/L (135-145); Total Protein 6.9 g/dL (6.5-8.0); Triglycerides 27 mg/dL
== END 2022-11-05 09:22 | disposition home or self-care (01) ==
LOC: HO.LAB 09:21
PROVIDERS: PCP Internal Medicine; Visit Provider Internal Medicine
DX: E78.00 Pure hypercholesterolemia, unspecified (principal); I10 Essential (primary) hypertension; Z95.818 Presence of other cardiac implants and grafts
CPT/HCPCS: 36415; 80053; 80061; 85025

== ENCOUNTER 2022-12-14 09:56 | Outpatient (REF) | payer MEDICAID, SELFPAY ==
[2022-12-20 06:49] LABS: Lipoprotein A 111 nmol/L (<75)
== END 2022-12-14 09:57 | disposition home or self-care (01) ==
LOC: HO.LAB 09:56
PROVIDERS: PCP Internal Medicine; Visit Provider Internal Medicine Cardiovascular Disease
DX: Z13.89 Encounter for screening for other disorder (principal)
CPT/HCPCS: 36415; 83695

== ENCOUNTER 2023-01-04 10:28 | Outpatient (AMB) | payer MEDICAID, SELFPAY ==
--- NOTE | 2023-01-04 10:49 | A.OFFVIS_ITS ---
Intake Vital Signs 01/04/23 10:50 Height 5 ft 3 in Weight 136 lb 10.986 oz BMI 24.2 BP 120/72 Blood Pressure Location Lt brachial Position Sitting Pulse 65 Pulse Source Pulse Oximeter Intake Visit Reasons: 4 month follow up Intake Note: 4 month follow up. Mail Processor Required: No Accompanied by: Self / Same As Patient Allergies No Known Allergies Allergy (Verified 01/04/23 10:51) Medication List - Last Reconciled 01/04/23 by Sarabjit So MD alirocumab 150 mg subcut Q14D aspirin 81 mg PO DAILY atorvastatin 80 mg PO DAILY metoprolol succinate ER 12.5 mg PO BID ticagrelor 90 mg PO BID HPI HPI Comments History of Present Illness Details Pleasant 32-year-old female who is here for follow-up. She was seen in the office by Dr. Garcia recently when she presented with burning chest discomfort. She went to a primary care physician's office with sinus tachycardia and diffuse ST depressions on the EKG. She was urgently referred to us and underwent cardiac catheterization which showed proximal LAD 95% stenosis. This was study with intravascular ultrasound and appeared to be atherosclerotic plaque which was treated with drug-eluting stent. No obvious sign of spontaneous coronary dissection was noted which was 1 of the concerns given her young age. Her circumflex and RCA were normal. She had a left dominant system and the right coronary artery was small in size. She has done well since then and has been taking medications. While walking her dog she had some chest pressure for which she took some nitroglycerin sublingual which relieved it. She has not had any further chest pressure. Her original discomfort the chest was a burning sensation which has not recurred since the LAD PCI. Her LDL was 90 at [facility] and she has been on atorvastatin 80 mg since discharge. Father has coronary artery disease and underwent PCI at age 51. No family history of familial hyperlipidemia. She had lp a level checked which was 161. Our plan was to start her on Praluent but insurance did not cover it and wanted to try Zetia 10 mg daily. She has been taking that regularly. On follow-up she is asymptomatic. She has no chest discomfort shortness of breath. Exercising regularly and has no exertional symptoms currently. 01/04/23: She returns for f/u/. She is o n Atorvastatin and Alirocumab. Lp a level is 111. She is off Zetia. She has been exercising and doing well and has no exertional symptoms. [facility] Surgical History History of cardiac cath Family History Father Coronary artery disease Social History Alcohol intake: never Patient Tobacco Use Status: Never used Tobacco Review of Systems Const Denies weakness ENT Denies dizziness Card Denies chest pain, Denies chest pain with activity, Denies syncope, Denies rapid heart rate, Denies pedal edema, Denies edema, Denies leg edema, Denies lightheadedness, Denies palpitations, Denies dyspnea, Denies dyspnea on exertion and Denies orthopnea Resp Denies cough, Denies dyspnea and Denies dyspnea on exertion GI Denies hematochezia and Denies change in stool character Musc Denies abnormal gait, Denies muscle cramps, Denies muscle weakness, Denies numbness, Denies radiating pain into limb and Denies tingling Neuro Denies abnormal gait, Denies dizziness, Denies syncope, Denies numbness, Denies tingling and Denies weakness Endo Denies palpitations Physical Exam Vital Signs: Last Vital Signs Pulse 65 01/04/23 10:50 BP 120/72 01/04/23 10:50 BMI result Body Mass Index 24.2 GENERAL APPEARANCE: in no acute distress, pleasant. NECK: no carotid bruit, no jugular venous distention. SKIN: no suspicious lesions, warm and dry. HEART: no murmurs, regular rate and rhythm. LUNGS: clear to auscultation bilaterally. ABDOMEN: soft, nontender. EXTREMITIES: no edema. PERIPHERAL PULSES: equal. NEUROLOGIC: No gross deficits, AAO X 3 Assessment & Plan Assessment & Plan (1) Elevated lipoprotein(a): Code(s): E78.41 - Elevated Lipoprotein(a) (2) Coronary artery disease: Code(s): I25.10 - Atherosclerotic heart disease of [place] coronary artery without angina pectoris Plan 32 female here for f/u She had unstable angina and underwent LAD PCI. She has normal LDL but elevated lp (a) levels. She has been on Atorvastatin and Alirocumab. I have explained to her that right now no further medication changes are needed. Data about lowering lp (a) to decrease future events is still controversial. More research is ongoing with novel lp (a) lowering agents and if it showed promising results then we will change therapy. Clinically she has been stable and has been exercising without symptoms. f/u 4- 6 months. Coding Level of Care Code Est Pt Level 4 (56795) Diagnoses Elevated lipoprotein(a) E78.41 Coronary artery disease I25.10
[2023-01-04 10:50] VITALS: BP 120/72; PULSE 65; BMI 24.2
== END 2023-01-04 11:12 | disposition home or self-care (01) ==
PROVIDERS: Visit Provider Internal Medicine Cardiovascular Disease
DX: E78.41 Elevated Lipoprotein(a) (principal); I25.10 Atherosclerotic heart disease of native coronary artery without angina pectoris
CPT/HCPCS: 99214

== ENCOUNTER → 2023-01-04 10:28 | Outpatient (BNVA) | payer MEDICAID, SELFPAY | PROVIDERS: Visit Provider Internal Medicine Cardiovascular Disease | DX: I25.10 Atherosclerotic heart disease of native coronary artery without angina pectoris (principal); E78.41 Elevated Lipoprotein(a) | CPT/HCPCS: 99212 ==

== ENCOUNTER 2023-05-03 10:13 | Outpatient (REF) | payer MEDICAID, SELFPAY ==
[2023-05-03 11:11] LABS: MANUAL DIFF FLAG NO
[2023-05-03 12:11] LABS: Basophils Percent Auto 0.7 % (0-2); Eosinophils Absolute Auto 0.2 X10*3/uL (0.0-0.4); Hematocrit 37.9 % (37.0-47.0); Hemoglobin 12.9 g/dl (12.0-16.0); Imm Gran Abs Auto 0.01 X10*3/uL (0.00-0.03); Imm Gran Pct Auto 0.2 % (0.0-0.4); Lymphocytes Percent Auto 24.5 % (20-40); Mean Corpuscular Volume 85.2 fL (80.0-98.0); Mean Platelet Volume 10.2 fL (9.4-12.3); Monocytes Absolute Auto 0.3 X10*3/uL (0.1-1.2); Monocytes Percent Auto 7.5 % (2-11); Neutrophils Absolute Auto 2.6 x10*3/uL (2.0-8.3); Neutrophils Percent Auto 62.1 % (45-73); Platelet Count 214 X10*3/uL (160-400); Red Blood Count 4.45 X10*6/uL (4.20-5.50); Red Cell Distribution Width 12.1 % (11.0-16.0); White Blood Count 4.2 X10*3/uL (4.8-10.8)
[2023-05-03 12:38] LABS: Alanine Aminotransferase 41 U/L (0-31); Albumin Level 4.2 g/dL (3.5-5.0); Alkaline Phosphatase 64 U/L (39-117); Anion Gap 11 (12-20); Aspartate Amino Transferase 30 U/L (5-31); Bilirubin Total 0.7 mg/dL (0.0-1.0); Blood Urea Nitrogen 10 mg/dL (9-16); Calcium 9.4 mg/dL (8.4-10.2); Carbon Dioxide 27 mmol/L (22-29); Chloride 106 mmol/L (96-108); Cholesterol 120 mg/dL (<200); Estimated Glomerular Filt Rate > 60; Glucose Random 87 mg/dL (60-115); HDL Cholesterol 65 mg/dL (>40); LDL Cholesterol Calculated 51 mg/dL (<100); Potassium 4.1 mmol/L (3.3-5.1); Sodium 140 mmol/L (135-145); Triglycerides 24 mg/dL (<150)
== END 2023-05-03 10:14 | disposition home or self-care (01) ==
LOC: HO.LAB 10:13
PROVIDERS: PCP Internal Medicine; Visit Provider Internal Medicine Cardiovascular Disease
DX: I25.10 Atherosclerotic heart disease of native coronary artery without angina pectoris (principal); I10 Essential (primary) hypertension; E78.41 Elevated Lipoprotein(a); Z68.24 Body mass index [BMI] 24.0-24.9, adult; Z95.818 Presence of other cardiac implants and grafts; Z98.890 Other specified postprocedural states; Z79.01 Long term (current) use of anticoagulants
CPT/HCPCS: 36415; 80053; 80061; 85025; 99212

== ENCOUNTER 2023-05-03 10:13 | Outpatient (AMB) | payer MEDICAID, SELFPAY ==
[2023-05-03 10:30] VITALS: BP 120/70; BMI 25.1
--- NOTE | 2023-05-03 10:30 | MHC.OFFVIS ---
Intake Vital Signs 05/03/23 10:30 Height 5 ft 3 in Weight 141 lb 8.588 oz BMI 25.1 BP 120/70 Blood Pressure Location Lt brachial Position Sitting Pulse Source Pulse Oximeter Intake Visit Reasons: 4 mth fu Intake Note: 4 mnth f/up pt its feeling fine. Manager Field Sales Required: No Accompanied by: Self / Same As Patient Allergies No Known Allergies Allergy (Verified 01/04/23 10:51) Medication List - Last Reconciled 05/03/23 by Sarabjit So MD alirocumab (Praluent Pen) 75 mg subcut Q14D aspirin 81 mg PO DAILY atorvastatin 80 mg PO DAILY metoprolol succinate ER 12.5 mg PO BID ticagrelor 90 mg PO BID HPI HPI Comments History of Present Illness Details Pleasant 32-year-old female who is here for follow-up. She was seen in the office by Dr. Garcia recently when she presented with burning chest discomfort. She went to a primary care physician's office with sinus tachycardia and diffuse ST depressions on the EKG. She was urgently referred to us and underwent cardiac catheterization which showed proximal LAD 95% stenosis. This was study with intravascular ultrasound and appeared to be atherosclerotic plaque which was treated with drug-eluting stent. No obvious sign of spontaneous coronary dissection was noted which was 1 of the concerns given her young age. Her circumflex and RCA were normal. She had a left dominant system and the right coronary artery was small in size. She has done well since then and has been taking medications. While walking her dog she had some chest pressure for which she took some nitroglycerin sublingual which relieved it. She has not had any further chest pressure. Her original discomfort the chest was a burning sensation which has not recurred since the LAD PCI. Her LDL was 90 at [facility] and she has been on atorvastatin 80 mg since discharge. Father has coronary artery disease and underwent PCI at age 51. No family history of familial hyperlipidemia. She had lp a level checked which was 161. Our plan was to start her on Praluent but insurance did not cover it and wanted to try Zetia 10 mg daily. She has been taking that regularly. On follow-up she is asymptomatic. She has no chest discomfort shortness of breath. Exercising regularly and has no exertional symptoms currently. 01/04/23: She returns for f/u/. She is on Atorvastatin and Alirocumab. Lp a level is 111. She is off Zetia. She has been exercising and doing well and has no exertional symptoms. 05/03/23: She returns for follow-up. She is getting some palpitations off and on. No chest discomfort or shortness of breath. Has no exertional symptoms. Taking medications regularly. Blood pressure is stable. COUNT INCLUDES THE [facility] Surgical History History of cardiac cath Family History Father Coronary artery disease Social History Alcohol intake: never Patient Tobacco Use Status: Never used Tobacco Review of Systems Const Reports chills, Reports fatigue, Reports fever(s), Reports frequent falls, Reports weakness, Reports weight gain and Reports weight loss ENT Reports dizziness Card Reports chest pain, Reports leg edema, Reports lightheadedness, Reports palpitations, Reports dyspnea and Reports dyspnea on exertion Resp Reports cough, Reports dyspnea and Reports dyspnea on exertion GI Reports hematochezia Musc Reports abnormal gait, Reports muscle weakness, Reports numbness, Reports radiating pain into limb and Reports tingling Neuro Reports abnormal gait, Reports dizziness, Reports frequent falls, Reports numbness, Reports tingling and Reports weakness Endo Reports fatigue and Reports palpitations Physical Exam Vital Signs: Last Vital Signs BP 120/70 05/03/23 10:30 BMI result Body Mass Index 25.1 GENERAL APPEARANCE: in no acute distress, pleasant. NECK: no carotid bruit, no jugular venous distention. SKIN: no suspicious lesions, warm and dry. HEART: no murmurs, regular rate and rhythm. LUNGS: clear to auscultation bilaterally. ABDOMEN: soft, nontender. EXTREMITIES: no edema. PERIPHERAL PULSES: equal. NEUROLOGIC: No gross deficits, AAO X 3 Assessment & Plan Assessment & Plan (1) Elevated lipoprotein(a): Code(s): E78.41 - Elevated Lipoprotein(a) (2) Coronary artery disease: Code(s): I25.10 - Atherosclerotic heart disease of [place] coronary artery without angina pectoris Plan Pleasant 32-year-old female here for follow-up. She had acute coronary syndrome in April 2022 and underwent drug-eluting stent to proximal LAD. She has done well since then. She was found to have elevated lipoprotein (a) levels. She was started on Praluent. Lipoprotein levels were dropped from 183 to 111 with Praluent. We tried to increase the Praluent to higher dose was insurance did not cover it. Again we had a discussion about lipoprotein levels. I have explained to her that currently we do not know what level to target for lipoprotein a in patients with coronary disease. She is reaching 1 year since her PCI. She is asking whether she needs to continue aspirin and Brilinta. I have advised her that she should stop both of them and start taking Plavix 75 mg once a day as a single agent. Thank you for allowing me to participate in the care of your patient. Please feel free to contact me if you have any questions. Medications: New clopidogrel 75 mg PO DAILY 90 tabs 4RF Coding Level of Care Code Est Pt Level 4 (22946) Diagnoses Elevated lipoprotein(a) E78.41 Coronary artery disease I25.10
== END 2023-05-03 11:00 | disposition home or self-care (01) ==
PROVIDERS: PCP Internal Medicine; Referring Provider Internal Medicine; Visit Provider Internal Medicine Cardiovascular Disease
DX: E78.41 Elevated Lipoprotein(a) (principal); I25.10 Atherosclerotic heart disease of native coronary artery without angina pectoris
CPT/HCPCS: 99214

== ENCOUNTER 2023-08-25 09:49 | Outpatient (AMB) | payer OTHER, SELFPAY ==
[2023-08-25 09:53] VITALS: BP 110/74; PULSE 62; BMI 23.6
--- NOTE | 2023-08-25 09:53 | A.OFFVIS_ITS ---
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 She was seen in the office by Dr. Garcia recently when she presented with burning chest di [place]. She went to a primary care physician's office with sinus tachycardia and diffuse ST depressions on the EKG. She was urgently referred to us and underwent cardiac catheterization which showed proximal LAD 95% stenosis. This was study with intravascular ultrasound and appeared to be atherosclerotic plaque which was treated with drug-eluting stent. No obvious sign of spontaneous coronary dissection was noted which was 1 of the concerns given her young age. Her circumflex and RCA were normal. She had a left dominant system and the right coronary artery was small in size. She has done well since then and has been taking medications. While walking her dog she had some chest pressure for which she took some nitroglycerin sublingual which relieved it. She has not had any further chest pressure. Her original discomfort the chest was a burning sensation which has not recurred since the LAD PCI. Her LDL was 90 at [facility] and she has been on atorvastatin 80 mg since discharge. Father has coronary artery disease and underwent PCI at age 51. No family history of familial hyperlipidemia. She had lp a level checked which was 161. Our plan was to start her on Praluent but insurance did not cover it and wanted to try Zetia 10 mg daily. She has been taking that regularly. On follow-up she is asymptomatic. She has no chest discomfort shortness of breath. Exercising regularly and has no exertional symptoms currently. 01/04/23: She returns for f/u/. She is on Atorvastatin and Alirocumab. Lp a level is 111. She is off Zetia. She has been exercising and doing well and has no exertional symptoms. 05/03/23: She returns for follow-up. She is getting some palpitations off and on. No chest discomfort or shortness of breath. Has no exertional symptoms. Taking medications regularly. Blood pressure is stable. 08/25/23: She returns for follow-up. She has been exercising regularly and has no exertional symptoms. On last visit we discussed about stopping aspirin and Brilinta and started on Plavix 75 mg daily. She has been taking Plavix 75 mg daily without any issues. On follow-up she has not using Praluent and said that she changed her insurance and apparently there were some issues about coverage by insurance. We will look into this. [facility] Surgical History History of cardiac cath Family History Father Coronary artery disease Social History Alcohol intake: never Patient Tobacco Use Status: Never used Tobacco Review of Systems Const Denies chills, Denies fatigue, Denies fever(s), Denies frequent falls, Denies weakness, Denies weight gain and Denies weight loss ENT Denies dizziness Card Denies chest pain, Denies leg edema, Denies lightheadedness, Denies palpitations, Denies dyspnea and Denies dyspnea on exertion Resp Denies cough, Denies dyspnea and Denies dyspnea on exertion GI Denies hematochezia Musc Denies abnormal gait, Denies muscle weakness, Denies numbness, Denies radiating pain into limb and Denies tingling Neuro Denies abnormal gait, Denies dizziness, Denies frequent falls, Denies numbness, Denies tingling and Denies weakness Endo Denies fatigue and Denies palpitations Physical Exam Vital Signs: Last Vital Signs Pulse 62 08/25/23 09:53 BP 110/74 08/25/23 09:53 BMI result Body Mass Index 23.6 GENERAL APPEARANCE: in no acute distress, pleasant. NECK: no carotid bruit, no jugular venous distention. SKIN: no suspicious lesions, warm and dry. HEART: no murmurs, regular rate and rhythm. LUNGS: clear to auscultation bilaterally. ABDOMEN: soft, nontender. EXTREMITIES: no edema. PERIPHERAL PULSES: equal. NEUROLOGIC: No gross deficits, AAO X 3 Office Procedures EKG Details: Sinus rhythm 62 beats per minute, normal axis, normal ECG, QTC 397 milliseconds [id number], Complete Assessment & Plan Assessment & Plan (1) Elevated lipoprotein(a): Code(s): E78.41 - Elevated Lipoprotein(a) Category: Medical (2) Coronary artery disease: Code(s): I25.10 - Atherosclerotic heart disease of [place] coronary artery without angina pectoris Category: Medical (3) Status post percutaneous transluminal coronary angioplasty: Code(s): Z98.61 - Coronary angioplasty status Category: Surgical Plan Pleasant 32-year-old female who is here for follow-up. In April 2022 she presented with unstable angina and was taken for cardiac catheterization showing proximal and ostial LAD plaque rupture. This was treated with drug-eluting stent. She did well after that. She was on aspirin and Brilinta after 1 year of dual antiplatelet therapy we discussed in stopped both and started on Plavix 75 mg once a day. She has been taking it regularly and has been doing well. No bleeding issues. Physically active and has no exertional issues. There is some issues with coverage of her PCSK9 inhibitor, we will look into this. I have also discussed with her about getting some advice from lipidology and I am referring her to [facility] for management of elevated lipoprotein a. She will see us back in few months. Thank you for allowing me to participate in the care of your patient. Please feel free to contact me if you have any questions. Coding Level of Care Code Est Pt Level 4 (91833) Diagnoses Elevated lipoprotein(a) E78.41 Coronary artery disease I25.10 Status post percutaneous transluminal coronary angioplasty Z98.61 CPT Codes EKG - CPT: 19998-[id number], Complete ([id number])
== END 2023-08-25 10:17 | disposition home or self-care (01) ==
PROVIDERS: PCP Internal Medicine; Visit Provider Internal Medicine Cardiovascular Disease
DX: E78.41 Elevated Lipoprotein(a) (principal); I25.10 Atherosclerotic heart disease of native coronary artery without angina pectoris; Z98.61 Coronary angioplasty status
CPT/HCPCS: 93010; 99214

== ENCOUNTER → 2023-08-25 09:49 | Outpatient (BNVA) | payer OTHER, SELFPAY | PROVIDERS: PCP Internal Medicine; Visit Provider Internal Medicine Cardiovascular Disease | DX: E78.41 Elevated Lipoprotein(a) (principal); I25.10 Atherosclerotic heart disease of native coronary artery without angina pectoris; Z98.61 Coronary angioplasty status | CPT/HCPCS: 93005; 99212 ==

== ENCOUNTER 2023-11-02 09:36 | Outpatient (REF) | payer OTHER, SELFPAY ==
[2023-11-02 10:57] LABS: Alanine Aminotransferase 26 U/L (0-31); Albumin Level 4.1 g/dL (3.5-5.0); Alkaline Phosphatase 54 U/L (39-117); Anion Gap 11 (12-20); Aspartate Amino Transferase 25 U/L (5-31); Blood Urea Nitrogen 12 mg/dL (9-16); Calcium 9.2 mg/dL (8.4-10.2); Carbon Dioxide 25 mmol/L (22-29); Chloride 107 mmol/L (96-108); Cholesterol 130 mg/dL (<200); Estimated Glomerular Filt Rate > 60; Glucose Random 85 mg/dL (60-115); HDL Cholesterol 61 mg/dL (>40); LDL Cholesterol Calculated 62 mg/dL (<100); Potassium 4.1 mmol/L (3.3-5.1); Sodium 139 mmol/L (135-145); Total Protein 6.7 g/dL (6.5-8.0); Triglycerides 37 mg/dL (<150)
== END 2023-11-02 09:37 | disposition home or self-care (01) ==
LOC: HO.LAB 09:36
PROVIDERS: PCP Internal Medicine; Visit Provider Internal Medicine
DX: Z00.00 Encounter for general adult medical examination without abnormal findings (principal); E78.00 Pure hypercholesterolemia, unspecified; I10 Essential (primary) hypertension; Z95.818 Presence of other cardiac implants and grafts; R05.9 Cough, unspecified
CPT/HCPCS: 36415; 80053; 80061

== ENCOUNTER 2024-01-27 08:53 | Outpatient (AMB) | payer OTHER, SELFPAY ==
[2024-01-27 08:57] VITALS: BP 110/72; PULSE 70; BMI 24.7
--- NOTE | 2024-01-27 08:57 | A.OFFVIS_ITS ---
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 She has done well since that time and now presents for follow-up. Today she reports that she has been doing well with no concerning symptoms. She does not get chest burning like she had in the past. She denies any chest discomfort at rest or with activity. No shortness of breath, PND, orthopnea or edema. No lightheadedness, presyncope, syncope. She reports good activity tolerance and exercises routinely. She takes her medications as directed. She did receive the Repatha injectable however has not started them. She did not receive any call from [place] regarding lipid account management specialist. [facility] Surgical History (Updated 01/27/24 @ 11:15 by Cary Lawrence, MARIEL-C) History of cardiac cath Family History Father Coronary artery disease Social History Alcohol intake: never Patient Tobacco Use Status: Never used Tobacco Review of Systems Const All systems reviewed & are unremarkable except as noted in HPI and below ENT Denies dizziness Card Denies chest pain, Denies chest pain at rest, Denies chest pain with activity, Denies rapid heart rate, Denies pedal edema, Denies edema, Denies leg edema, Denies lightheadedness, Denies palpitations, Denies dyspnea, Denies dyspnea on exertion and Denies orthopnea Resp Denies cough, Denies dyspnea and Denies dyspnea on exertion GI Denies hematochezia and Denies change in stool character Musc Denies abnormal gait, Denies limited range of motion, Denies muscle cramps, Denies muscle weakness, Denies numbness, Denies radiating pain into limb, Denies stiffness and Denies tingling Neuro Denies abnormal gait, Denies dizziness, Denies numbness and Denies tingling Endo Denies palpitations Physical Exam Vital Signs: Last Vital Signs Pulse 70 01/27/24 08:57 BP 110/72 01/27/24 08:57 BMI result Body Mass Index 24.7 Const General: cooperative, healthy appearing, comfortable and no acute distress Orientation/consciousness: patient oriented x3 Neck Neck: Yes normal visual inspection Resp Effort & Inspection: normal respiratory effort Auscultation: clear to auscultation bilaterally, no crackles, no rales, no rhonchi and no wheezes Cardio Rate: regular rate Rhythm: regular rhythm Heart sounds: S1 normal heart sound present, S2 normal heart sound present, no murmurs and no rubs Neuro General: patient oriented x3 Extrem General: Yes normal to inspection Psych Appearance: grossly normal Mental Status: mental status grossly normal Speech and movement: Normal speech and movement present Assessment & Plan Assessment & Plan (1) Coronary artery disease: Code(s): I25.10 - Atherosclerotic heart disease of [place] coronary artery without angina pectoris Category: Medical Plan: Patient had reports of burning chest discomfort brought on by exertion. EKG showed T-wave inversions in the inferior and anterior lateral leads. Echocardiogram did show regional wall motion abnormalities. She then underwent cardiac catheterization on 05/19/2022 which showed 95% proximal LAD stenosis, FERDINAND was placed. Her symptoms resolved. She was on dual antiplatelet therapy for 1 year and then was changed to Plavix only. Last EKG done 08/25/2023 shows sinus rhythm with no acute ST or T-wave abnormalities, rate 62. Today she reports no symptoms and good activity tolerance. She exercises routinely. Continue Plavix indefinitely. Continue high-dose atorvastatin. Repatha was recently approved, she has not started yet. Instructed on starting it and will plan a recheck of labs in 2 months. Continue low-dose metoprolol. Signs and symptoms of angina reviewed. Cardiology follow-up 6 months, sooner if needed. (2) Stented coronary artery: Comment: Proximal LAD 05/19/2022 Code(s): Z95.5 - Presence of coronary angioplasty implant and graft Category: Surgical Plan: As above (3) History of cardiac cath: Comment: 05/19/2022, proximal LAD 95% stenosis, FERDINAND placed, left dominant system, left circumflex and RCA normal. Code(s): Z98.890 - Other specified postprocedural states Category: Surgical Plan: As above (4) Elevated lipoprotein(a): Code(s): E78.41 - Elevated Lipoprotein(a) Category: Medical Plan: Patient has history of elevated lipoprotein A. Labs 05/28/2022 showed lipoprotein a 161. Most recent labs 12/14/2022 showed lipoprotein a 111. She is on high- dose atorvastatin. She will be starting Repatha. Plan for recheck of lipids and lipoprotein a in [address] So regarding referral to lipid specialist -was mentioned on last visit. Plan Time spent on chart review, documentation, interview and assessment Orders: Orders Lipid Panel Today E78.41 - Elevated Lipoprotein(a), I25.10 - Atherosclerotic heart disease of [place] coronary artery without angina pectoris Lipoprotein A Today E78.41 - Elevated Lipoprotein(a), I25.10 - Atherosclerotic heart disease of [place] coronary artery without angina pectoris Comprehensive Met. Panel Today I25.10 - Atherosclerotic heart disease of [place] coronary artery without angina pectoris Medications: New atorvastatin 80 mg PO DAILY 90 tabs 3RF metoprolol succinate ER 25 mg PO DAILY 90 tabs 3RF Changed From evolocumab (Repatha SureClick) 140 mg subcut Q2W 2 mL 2RF To evolocumab (Repatha SureClick) 140 mg subcut Q2W 90 days 6 mL 3RF Coding Level of Care Code Est Pt Level 4 (00546) Diagnoses Coronary artery disease I25.10 Stented coronary artery Z95.5 History of cardiac cath Z98.890 Elevated lipoprotein(a) E78.41 Time Spent (min) 28
== END 2024-01-27 09:15 | disposition home or self-care (01) ==
PROVIDERS: PCP Internal Medicine; Visit Provider Nurse Practitioner Family
DX: I25.10 Atherosclerotic heart disease of native coronary artery without angina pectoris (principal); Z95.5 Presence of coronary angioplasty implant and graft; Z98.890 Other specified postprocedural states; E78.41 Elevated Lipoprotein(a)
CPT/HCPCS: 99214

== ENCOUNTER → 2024-01-27 08:53 | Outpatient (BNVA) | payer OTHER, SELFPAY | PROVIDERS: PCP Internal Medicine; Visit Provider Nurse Practitioner Family | DX: I25.10 Atherosclerotic heart disease of native coronary artery without angina pectoris (principal); E78.41 Elevated Lipoprotein(a); Z95.5 Presence of coronary angioplasty implant and graft; Z98.890 Other specified postprocedural states | CPT/HCPCS: 99212 ==

== ENCOUNTER 2024-04-03 09:43 | Outpatient (REF) | payer OTHER, SELFPAY ==
[2024-04-03 11:16] LABS: Alanine Aminotransferase 34 U/L (0-31); Albumin Level 4.3 g/dL (3.5-5.0); Alkaline Phosphatase 60 U/L (39-117); Anion Gap 11 (12-20); Aspartate Amino Transferase 30 U/L (5-31); Bilirubin Total 0.6 mg/dL (0.0-1.0); Blood Urea Nitrogen 10 mg/dL (9-16); Calcium 9.7 mg/dL (8.4-10.2); Carbon Dioxide 26 mmol/L (22-29); Chloride 105 mmol/L (96-108); Cholesterol 135 mg/dL (<200); Estimated Glomerular Filt Rate > 60; Glucose Random 90 mg/dL (60-115); HDL Cholesterol 61 mg/dL (>40); LDL Cholesterol Calculated 66 mg/dL (<100); Potassium 4.5 mmol/L (3.3-5.1); Sodium 137 mmol/L (135-145); Total Protein 7.2 g/dL (6.5-8.0); Triglycerides 44 mg/dL (<150)
[2024-04-07 06:37] LABS: Lipoprotein A 167 nmol/L (<75)
== END 2024-04-03 09:44 | disposition home or self-care (01) ==
LOC: HO.LAB 09:43
PROVIDERS: PCP Internal Medicine; Referring Provider Internal Medicine; Visit Provider Nurse Practitioner Family
DX: I25.10 Atherosclerotic heart disease of native coronary artery without angina pectoris (principal); E78.41 Elevated Lipoprotein(a); E78.00 Pure hypercholesterolemia, unspecified; I10 Essential (primary) hypertension; Z68.24 Body mass index [BMI] 24.0-24.9, adult; Z95.818 Presence of other cardiac implants and grafts
CPT/HCPCS: 36415; 80053; 80061; 83695

== ENCOUNTER 2024-07-19 09:49 | Outpatient (AMB) | payer OTHER, SELFPAY ==
--- NOTE | 2024-07-19 09:56 | MHC.OFFVIS ---
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 She was seen in the office by Dr. Garcia recently when she presented with burning chest discomfort. She went to a primary care physician's office with sinus tachycardia and diffuse ST depressions on the EKG. She was urgently referred to us and underwent cardiac catheterization which showed proximal LAD 95% stenosis. This was study with intravascular ultrasound and appeared to be atherosclerotic plaque which was treated with drug-eluting stent. No obvious sign of spontaneous coronary dissection was noted which was 1 of the concerns given her young age. Her circumflex and RCA were normal. She had a left dominant system and the right coronary artery was small in size. She has done well since then and has been taking medications. While walking her dog she had some chest pressure for which she took some nitroglycerin sublingual which relieved it. She has not had any further chest pressure. Her original discomfort the chest was a burning sensation which has not recurred since the LAD PCI. Her LDL was 90 at [facility] and she has been on atorvastatin 80 mg since discharge. Father has coronary artery disease and underwent PCI at age 51. No family history of familial hyperlipidemia. She had lp a level checked which was 161. Our plan was to start her on Praluent but insurance did not cover it and wanted to try Zetia 10 mg daily. She has been taking that regularly. On follow-up she is asymptomatic. She has no chest discomfort shortness of breath. Exercising regularly and has no exertional symptoms currently. 01/04/23: She returns for f/u/. She is on Atorvastatin and Alirocumab. Lp a level is 111. She is off Zetia. She has been exercising and doing well and has no exertional symptoms. 05/03/23: She returns for follow-up. She is getting some palpitations off and on. No chest discomfort or shortness of breath. Has no exertional symptoms. Taking medications regularly. Blood pressure is stable. 08/25/23: She returns for follow-up. She has been exercising regularly and has no exertional symptoms. On last visit we discussed about stopping aspirin and Brilinta and started on Plavix 75 mg daily. She has been taking Plavix 75 mg daily without any issues. On follow-up she has not using Praluent and said that she changed her insurance and apparently there were some issues about coverage by insurance. We will look into this. 07/19/2024: On follow-up today she has been doing well. No chest discomfort shortness of breath. Occasionally she gets palpitations lasting for a 1-3 seconds. Taking medications regularly. Last LDL level was 167 in 04/14/2024. Total cholesterol 135, triglyceride 44, LDL 66 and HDL 61. [facility] Surgical History History of cardiac cath Family History Father Coronary artery disease Social History Alcohol intake: never Patient Tobacco Use Status: Never used Tobacco Review of Systems Const Denies chills, Denies fatigue, Denies fever(s), Denies frequent falls, Denies weakness, Denies weight gain and Denies weight loss ENT Denies dizziness Card Denies chest pain, Denies leg edema, Denies lightheadedness, Denies palpitations, Denies dyspnea and Denies dyspnea on exertion Resp Denies cough, Denies dyspnea and Denies dyspnea on exertion GI Denies hematochezia Musc Denies abnormal gait, Denies muscle weakness, Denies numbness, Denies radiating pain into limb and Denies tingling Neuro Denies abnormal gait, Denies dizziness, Denies frequent falls, Denies numbness, Denies tingling and Denies weakness Endo Denies fatigue and Denies palpitations Physical Exam Vital Signs: Last Vital Signs Pulse 59 07/19/24 09:58 BP 110/80 07/19/24 09:58 BMI result Body Mass Index 25.2 GENERAL APPEARANCE: in no acute distress, pleasant. NECK: no carotid bruit, no jugular venous distention. SKIN: no suspicious lesions, warm and dry. HEART: no murmurs, regular rate and rhythm. LUNGS: clear to auscultation bilaterally. ABDOMEN: soft, nontender. EXTREMITIES: no edema. PERIPHERAL PULSES: equal. NEUROLOGIC: No gross deficits, AAO X 3 Office Procedures EKG Details: Sinus bradycardia 59 beats per minute, normal axis, QTc 386 msec. [id number], Complete Assessment & Plan Assessment & Plan (1) Coronary artery disease: Code(s): I25.10 - Atherosclerotic heart disease of [place] coronary artery without angina pectoris Category: Medical (2) Elevated lipoprotein(a): Code(s): E78.41 - Elevated Lipoprotein(a) Category: Medical Plan Pleasant 54-year-old female here for follow-up. She has background history of unstable angina in 05/15/2022 where cardiac catheterization was performed which showed proximal and ostial LAD plaque rupture. This was treated with drug-eluting stent at that time with intravascular ultrasound guidance. She was found to have elevated lipoprotein a level. Last lipoprotein a level was 167. She is on Repatha and atorvastatin. On Plavix and metoprolol currently. Clinically stable. Last LDL was 66. I would target below 55 in her and add ezetimibe 10 mg daily. I am also sending her to Dr. Lennox Deluca at [facility] for the elevated lipoprotein a level. Thank you for allowing me to participate in the care of your patient. Please feel free to contact me if you have any questions. Orders: Orders Lipid Panel 6 Weeks E78.41 - Elevated Lipoprotein(a) Lipoprotein A 6 Weeks E78.41 - Elevated Lipoprotein(a) Referrals Cardiology Referral E78.41 - Elevated Lipoprotein(a) Coding Level of Care Code Est Pt Level 4 (35218) Complex EM visit Add On G2211 Diagnoses Coronary artery disease I25.10 Elevated lipoprotein(a) E78.41 CPT Codes EKG - CPT: 39769-[id number], Complete ([id number])
[2024-07-19 09:58] VITALS: BP 110/80; PULSE 59; BMI 25.2
--- OUTSIDE RECORDS SUMMARY | 2024-07-19 11:04 | XMS_ITS | Encounter Summary ---
Author Organization [facility] Address [address] [place] [address] Care Team Providers Care Rn Anesthetist Name Role Phone Marcela Rush MD Primary Care Provider [phone] Encounter Details Date Type Department Care Team (Late st Contact Info) Description 05/23/2024 Scanned Document [facility] Heart & Vascular [place] - Preventative Cardiology [address] [facility] [address] [place] [address] Mabel Keita MD [address] [place] [address] [place] [id number] Social History Tobacco Use Types Packs/Day Years Used Date Smoking Tobacco: Never Assessed Sex and Gender Information Value Date Recorded Sex Assigned at Not on file Gender Identity Female 02/01/2024 2:01 PM EDT Sexual Orientation Not on file documented as of this encounter Plan of Treatment Not on file documented as of this encounter Visit Diagnoses Not on filedocumented in this encounter Care Teams Rn Anesthetist Relationship Specialty Start Date End Date Marcela Rush MD [address] [address] PCP - General Internal Medicine 02/01/24 documented as of this encounter
--- OUTSIDE RECORDS SUMMARY | 2024-07-19 11:04 | XMS_ITS | Encounter Summary ---
Author Organization [facility] Address [address] [place] [address] Care Team Providers Care Technologist Development Name Role Phone Marcela Rush MD Primary Care Provider [phone] Encounter Details Date Type Department Care Team (Late st Contact Info) Description 02/17/2024 Scanned Document [facility] Heart & Vascular [place] - Preventative Cardiology [address] [facility] [address] [place] [address] Mabel Keita MD [address] [place] [address] [place] [id number] Social History Tobacco Use Types Packs/Day Years [...] on filedocumented in this encounter Care Teams Technologist Development Relationship Specialty Start Date End Date Marcela Rush MD [address] [address] PCP - General Internal Medicine 02/01/24 documented as of this encounter
--- OUTSIDE RECORDS SUMMARY | 2024-07-19 11:04 | XMS_ITS | Clinical Summary ---
Author Organization [address] [place] [address] [place] [phone] Phone Care Team Providers Care Hot Dip Galvanizer Name Role Phone Lucia Carey MD Primary Care Provider +1 [phone] Encounters Date Type Department Care Team Description 06/09/2024 5:45 PM EST Office Visit Walk[facility]In Clinic [address] [address] Jacek Escobar, GATE KEEPER Symptoms of upper respiratory infection (URI) (Primary Dx) from Last 3 Months Social History Tobacco Use Types Packs/Day Years Used Date Smoking Tobacco: Never Assessed Comments Unknown Sex and Gender Information Value Date Recorded Sex Assigned at Not on file Legal Sex Female 2:17 PM EST Gender Identity Not on file Sexual Orientation Not on file Last Filed Vital Signs Vital Sign Reading Time Taken Comments Blood Pressure 134/88 06/09/2024 5:47 PM EST Pulse 86 06/09/2024 5:47 PM EST Temperature 36.8 ??C (98.2 ??F) 06/09/2024 5:47 PM ES T Respiratory Rate - - Oxygen Saturation 98% 06/09/2024 5:47 PM EST Inhaled Oxygen Concentration - - Weight - - Height - - Body Mass Index - - Plan of Treatment Health Maintenance Due Date Last Done Comments DTaP,Tdap,and Td Vaccines (1 - Tdap) 2008 Hepatitis B Vaccines (1 of 3 - 19+ 3-dose series) 2008 Cervical Cancer Screening: P ap Smear 2010 Depression Screening 06/13/2022 HIV Screening 06/13/2022 Hepatitis C Screening 06/13/2022 Social Influencers of Health Screening 06/13/2022 COVID-19 Vaccine ( - 2023-2 5 season) 2023 Influenza Vaccine (#1) 2023 HIB Vaccines Aged Out No longer eligi ble based on patient's age to complete this topic HPV Vaccines Aged Out No longer eligi ble based on patient's age to complete this topic Hepatitis A Vaccines Aged Out No long er eligible based on patient's age to complete this topic IPV Vaccines Aged Out No longer eligi ble based on patient's age to complete this topic MMR Vaccines Aged Out No longer eligi ble based on patient's age to complete this topic Meningococcal ACWY Vaccine Aged Out N o longer eligible based on patient's age to complete this topic Meningococcal B Vacine Aged Out No lo nger eligible based on patient's age to complete this topic Pneumococcal Vaccine: Pediat rics (0 to 5 Years) and At-Risk Patients (6 to 64 Years) Aged Out No longer eligible b ased on patient's age to complete this topic RSV Immunization Patients Un jose cruz 20 months Aged Out No longer eligible b ased on patient's age to complete this topic Varicella Vaccines Aged Out No longer eligible based on patient's age to complete this topic Procedures Procedure Name Priority Date/Time Associated Diagnosis Comments POC RAPID [id number], MOLECULAR Routine 06/09/2024 5:54 PM EST Symptoms of upper respiratory infection (URI) POC RAPID STREP A Routine 06/09/2024 5:5 3 PM EST Symptoms of upper respiratory infection (URI) from Last 3 Months Results * Poc Rapid [id number], MOLECULAR (06/09/2024 5:54 PM EST) Pathologist [facility] COVID-19/SARS- COV-2 Rapid POC Negative Negative Internal Control Pass Yes Yes Swab Nasopharyngeal structure / Unknown 06/09/2024 5:54 PM EST Jacek Escobar NP POINT OF CARE TEST ENTER/EDIT ORDERABLES Final Result * POC rapid strep A manually resulted (06/09/2024 5:53 PM EST) Pathologist [facility] Rapid Strep A Screen POC Negative Negative Internal Control Pass Yes Yes Swab Structure of anterior portion of neck / Unknown 06/09/2024 5:53 PM EST Jacek Escobar NP POINT OF CARE TEST ENTER/EDIT ORDERABLES Final Result from Last 3 Months Insurance [facility] PL[employer] Care Teams Hot Dip Galvanizer Relationship Specialty Start Date End Date Lucia Carey MD PCP - General 08/09/23
--- OUTSIDE RECORDS SUMMARY | 2024-07-19 11:04 | XMS_ITS | Clinical Summary ---
Author Organization [facility] Address [address] [place] [address] Care Team Providers Care Life Skills Worker Name Role Phone Marcela Rush MD Primary Care Provider [phone] Encounters Date Type Department Care Team Description 05/23/2024 Scanned Document [facility] Heart & Vascular [place] - Preventative Cardiology 85 [facility], [address] [place] [address] Mabel Keita MD from Last 3 Months Social History Tobacco Use Types Packs/Day Years Used Date Smoking Tobacco: Never Assessed Sex and Gender Information Value Date Recorded Sex Assigned at Not on file Gender Identity Female 02/01/2024 2:01 PM EDT Sexual Orientation Not on file Plan of Treatment Health Maintenance Due Date Last Done Comments Hepatitis C Virus Screening 1989 HIV Screening 2002 DTaP/Tdap/Td Vaccines (1 - Tdap) 2008 Hepatitis B Vaccines (1 of 3 - 19+ 3-dose series) 2008 COVID-19 Vaccine (2023-2 5 season) 2023 HPV Vaccines Aged Out No longer eligi ble based on patient's age to complete this topic Pneumococcal Vaccine: Pediat newton (0-5 Years) and At-Risk Patients (6 to 49 Years) Aged Out No longer eligible b ased on patient's age to complete this topic Care Teams Life Skills Worker Relationship Specialty Start Date End Date Marcela Rush MD [facility] [address] [address] PCP - General Internal Medicine 02/01/24
--- OUTSIDE RECORDS SUMMARY | 2024-07-19 11:04 | XMS_ITS ---
Author Name [facility] Organization Unknown Care Team Organization Name Specialty Phone Email Start Date End [facility] MATT CARTER Primary Care 02/17/2024
== END 2024-07-19 10:26 | disposition home or self-care (01) ==
LOC: HO.HCS 09:49
PROVIDERS: PCP Internal Medicine; Visit Provider Internal Medicine Cardiovascular Disease
DX: I25.10 Atherosclerotic heart disease of native coronary artery without angina pectoris (principal); E78.41 Elevated Lipoprotein(a)
CPT/HCPCS: 93010; 99214; G2211

== ENCOUNTER → 2024-07-19 09:49 | Outpatient (BNVA) | payer OTHER, SELFPAY | PROVIDERS: PCP Internal Medicine; Visit Provider Internal Medicine Cardiovascular Disease | DX: I25.10 Atherosclerotic heart disease of native coronary artery without angina pectoris (principal); E78.41 Elevated Lipoprotein(a); R94.31 Abnormal electrocardiogram [ECG] [EKG]; R00.1 Bradycardia, unspecified | CPT/HCPCS: 93005; 99212 ==

== ENCOUNTER 2024-10-26 09:20 | Outpatient (REF) | payer OTHER, SELFPAY ==
--- OUTSIDE RECORDS SUMMARY | 2024-10-26 09:37 | XMS_ITS | Encounter Summary ---
Author Organization [facility] Address [address] [place] [address] Care Team Providers Care Hardener Helper Name Role Phone Marcela Rush MD Primary Care Provider +1 [phone] Encounter Details Date Type Department Care Team (Late st Contact Info) Description 05/23/2024 Scanned Document [facility] Heart & Vascular [place] - Preventative Cardiology 85 [facility], [facility] [address] [place] [address] Mabel Keita MD 85 [facility] [address] [place] [phone] Social History Tobacco Use Types Packs/Day Years Used Date Smoking Tobacco: Never Assessed Comments Unknown Sex and Gender Information Value Date Recorded Sex Assigned at Not on file Legal Sex Female 2:00 PM EDT Gender Identity Female 02/01/2024 2:01 PM EDT Sexual Orientation Not on file documented as of this encounter Plan of Treatment Not on file documented as of this encounter Visit Diagnoses Not on filedocumented in this encounter Care Teams Hardener Helper Relationship Specialty Start Date End Date Marcela Rush MD 1221 [facility] [address] [place] [address] PCP - General Internal Medicine 02/01/24 documented as of this encounter
[2024-10-26 10:52] LABS: Cholesterol 118 mg/dL (<200); HDL Cholesterol 71 mg/dL (>40); Triglycerides 49 mg/dL (<150)
== END 2024-10-26 09:21 | disposition home or self-care (01) ==
LOC: HO.LAB 09:20
PROVIDERS: PCP Internal Medicine; Visit Provider Internal Medicine Cardiovascular Disease
DX: E78.41 Elevated Lipoprotein(a) (principal)
CPT/HCPCS: 36415; 80061; 83695

== ENCOUNTER 2024-11-20 11:16 | Outpatient (AMB) | payer OTHER, SELFPAY ==
[2024-11-20 11:18] VITALS: BP 110/70; PULSE 98; BMI 25.0
--- NOTE | 2024-11-20 11:18 | MHC.OFFVIS ---
Vital Signs 11/20/24 11:18 Height 5 ft 3 in Weight 141 lb 1.533 oz BMI 25.0 BP 110/70 Blood Pressure Location Lt brachial Position Sitting Pulse 98 Intake Visit Reasons: 4m follow up Intake Note: 4 month follow-up feeling good Storage Specialist Required: No Allergies No Known Allergies Allergy (Verified 01/27/24 08:59) Medication List - Last Reconciled 11/20/24 by Sarabjit So MD atorvastatin 80 mg PO DAILY clopidogrel 75 mg PO DAILY evolocumab (Repatha SureClick) 140 mg subcut Q2W 90 days metoprolol succinate ER 25 mg PO DAILY HPI Comments Details: Pleasant 34-year-old female who is here for follow-up. She was seen in the office by Dr. Garcia recently when she presented with burning chest discomfort. She went to a primary care physician's office with sinus tachycardia and diffuse ST depressions on the EKG. She was urgently referred to us and underwent cardiac catheterization which showed proximal LAD 95% stenosis. This was study with intravascular ultrasound and appeared to be atherosclerotic plaque which was treated with drug-eluting stent. No obvious sign of spontaneous coronary dissection was noted which was 1 of the concerns given her young age. Her circumflex and RCA were normal. She had a left dominant system and the right coronary artery was small in size. She has done well since then and has been taking medications. While walking her dog she had some chest pressure for which she took some nitroglycerin sublingual which relieved it. She has not had any further chest pressure. Her original discomfort the chest was a burning sensation which has not recurred since the LAD PCI. Her LDL was 90 at [facility] and she has been on atorvastatin 80 mg since discharge. Father has coronary artery disease and underwent PCI at age 51. No family history of familial hyperlipidemia. She had lp a level checked which was 161. Our plan was to start her on Praluent but insurance did not cover it and wanted to try Zetia 10 mg daily. She has been taking that regularly. On follow-up she is asymptomatic. She has no chest discomfort shortness of breath. Exercising regularly and has no exertional symptoms currently. 01/04/23: She returns for f/u/. She is on Atorvastatin and Alirocumab. Lp a level is 111. She is off Zetia. She has been exercising and doing well and has no exertional symptoms. 05/03/23: She returns for follow-up. She is getting some palpitations off and on. No chest discomfort or shortness of breath. Has no exertional symptoms. Taking medications regularly. Blood pressure is stable. 08/25/23: She returns for follow-up. She has been exercising regularly and has no exertional symptoms. On last visit we discussed about stopping aspirin and Brilinta and started on Plavix 75 mg daily. She has been taking Plavix 75 mg daily without any issues. On follow-up she has not using Praluent and said that she changed her insurance and apparently there were some issues about coverage by insurance. We will look into this. 07/19/2024: On follow-up today she has been doing well. No chest discomfort shortness of breath. Occasionally she gets palpitations lasting for a 1-3 seconds. Taking medications regularly. Last LDL level was 167 in 04/14/2024. Total cholesterol 135, triglyceride 44, LDL 66 and HDL 61. 11/20/2024: She is here for follow-up. She continues to exercise and has no exertional symptoms. Off and on gets some palpitations lasting for few sec. She also is complaining of some hair loss. She did not have any TSH testing recently. Her last lp (a) level is 114. LDL is 38. She is tolerating medications. [facility] Surgical History History of cardiac cath Family History Father Coronary artery disease Social History Alcohol intake: never Patient Tobacco Use Status: Never used Tobacco Review of Systems Const Denies chills, Denies fatigue, Denies fever(s), Denies frequent falls, Denies weakness, Denies weight gain and Denies weight loss ENT Denies dizziness Card Denies chest pain, Denies leg edema, Denies lightheadedness, Denies palpitations, Denies dyspnea, Denies dyspnea on exertion, Denies orthopnea and Denies other (loss of consciousness) Resp Denies cough, Denies dyspnea and Denies dyspnea on exertion GI Denies hematochezia and Denies change in stool character Musc Denies abnormal gait, Denies muscle weakness, Denies numbness, Denies radiating pain into limb and Denies tingling Neuro Denies abnormal gait, Denies dizziness, Denies frequent falls, Denies numbness, Denies tingling and Denies weakness Endo Denies fatigue and Denies palpitations Physical Exam Vital Signs: Last Vital Signs Pulse 98 11/20/24 11:18 BP 110/70 11/20/24 11:18 BMI result Body Mass Index 25.0 GENERAL APPEARANCE: in no acute distress, pleasant. NECK: no carotid bruit, no jugular venous distention. SKIN: no suspicious lesions, warm and dry. HEART: no murmurs, regular rate and rhythm. LUNGS: clear to auscultation bilaterally. ABDOMEN: soft, nontender. EXTREMITIES: no edema. PERIPHERAL PULSES: equal. NEUROLOGIC: No gross deficits, AAO X 3 Assessment & Plan Assessment & Plan (1) Elevated lipoprotein(a): Code(s): E78.41 - Elevated Lipoprotein(a) Category: Medical (2) Coronary artery disease: Code(s): I25.10 - Atherosclerotic heart disease of [place] coronary artery without angina pectoris Category: Medical Plan Pleasant 34 year female who is here for follow-up. She has background history of coronary artery disease with presentation with unstable angina when she underwent cardiac catheterization showing plaque rupture in the proximal LAD which was treated with drug-eluting stent. This was in 2022. She has done well since then and has no exertional symptoms. She exercises regularly and has no complaints during exercise. Occasionally she gets palpitations. We will check TSH level. Continue medications as before. We will refer her to [place] to lipidology clinic. She will check with her insurance whether she is covered to go to [place]. Will refer to Dr Jaron Morrison at [facility]. Thank you for allowing me to participate in the care of your patient. Please feel free to contact me if you have any questions. Orders: Orders TSH reflex Free T4 Today I25.10 - Atherosclerotic heart disease of [place] coronary artery without angina pectoris Referrals Cardiology Referral E78.41 - Elevated Lipoprotein(a) Coding Level of Care Code Est Pt Level 4 (09504) Diagnoses Elevated lipoprotein(a) E78.41 Coronary artery disease I25.10
--- OUTSIDE RECORDS SUMMARY | 2024-11-20 12:33 | XMS_ITS | Clinical Summary ---
Author Organization [address] [place] [address] [place] [phone] Phone Care Team Providers Care Attending Ambulatory Care Name Role Phone Lucia Carey MD Primary Care Provider [phone] [phone] Allergies No known active allergies Medications clotrimazole (LOTRIMIN) 1 % cream Apply topically 2 (two) times a day. 30 g 2 5 11/15/19 25 triamcinolone (KENALOG) 0.1 % cream Apply 1 Application topically 2 (two) times a day for 10 days. 30 g 5 11/05/19 25 Encounters Date Type Department Care Team Description 10/25/2024 9:45 AM EDT Office Visit Walk-In Clinic - [address] [phone] Heber Louis PA Allergic contact dermatitis, unspecified trigger (Primary Dx) 10/15/2024 2:00 PM EDT Office Visit Walk-In [facility] - [address] [phone] Urszula López NP Tinea (Primary Dx) from Last 3 Months Social History Tobacco Use Types Packs/Day Years Used Date Smoking Tobacco: Never Smokeless Tobacco: Never Tobacco Cessation:Counseling Given: Not Answered Alcohol Use Standard Drinks/Week Comments Never 0 (1 standard drink = 0.6 oz pur e alcohol) Comments No Sex and Gender Information Value Date Recorded Sex Assigned at Not on file Legal Sex Female 2:17 PM EST Gender Identity Not on file Sexual Orientation Not on file Obstetrics History Last Filed Vital Signs Vital Sign Reading Time Taken Comments Blood Pressure 133/86 10/25/2024 9:33 AM EDT Pulse 72 10/25/2024 9:33 AM EDT Temperature 36.8 C (98.2 F) 10/25/2024 9:33 AM EDT Respiratory Rate 18 10/15/2024 1:58 PM EDT Oxygen Saturation 98% 06/09/2024 5:47 PM EST Inhaled Oxygen Concentration - - Weight 64.4 kg (142 lb) 10/15/2024 1:58 PM EDT Height 160 cm (5' 3 ) 10/15/2024 1:58 PM EDT Body Mass Index 25.15 10/15/2024 1:58 PM EDT Plan of Treatment Health Maintenance Due Date Last Done Comments DTaP,Tdap,and Td Vaccines (1 - Tdap) 2008 Hepatitis B Vaccines (1 of 3 - 19+ 3-dose series) 2008 Cervical Cancer Screening: P ap Smear 2010 HIV Screening 06/13/2022 Hepatitis C Screening 06/13/2022 Social Influencers of Health Screening 06/13/2022 COVID-19 Vaccine (2023-2 5 season) 2023 Depression Screening 04/26/2024 Influenza Vaccine (#1) 2024 HIB Vaccines Aged Out No longer eligi [...] age to complete this topic Meningococcal B Vaccine Aged Out No l onger eligible based on patient's age to complete this topic Pneumococcal Vaccine: Pediat rics (0 to 5 Years) and At-Risk Patients (6 to 49 Years) Aged Out No longer eligible b ased on patient's age to complete this topic RSV Immunization Patients Un jose cruz 20 months Aged Out No longer eligible b ased on patient's age to complete this topic Varicella Vaccines Aged Out No longer eligible based on patient's age to complete this topic Insurance [facility] PL[facility] Care Teams Attending Ambulatory Care Relationship Specialty Start Date End Date Lucia Carey MD [address] [place] [id number] PCP - General Internal Medicine 10/15/24
--- OUTSIDE RECORDS SUMMARY | 2024-11-20 12:33 | XMS_ITS | Encounter Summary ---
Author Organization [facility] Address [address] [place] [address] Care Team Providers Care Shaker Operator Name Role Phone Marcela Rush MD Primary Care Provider [phone] [phone] Encounter Details Date Type Department Care Team (Late st Contact Info) Description 05/23/2024 Scanned Document [facility] Heart & Vascular [place] - Preventative Cardiology 85 [facility], [facility] [address] [place] [address] Mabel Keita MD 85 [facility] [address] [place] [phone] Social History Tobacco Use Types Packs/Day Years [...] on filedocumented in this encounter Care Teams Shaker Operator Relationship Specialty Start Date End Date Marcela Rush MD 1221 [facility] [address] [place] [address] PCP - General Internal Medicine 02/01/24 documented as of this encounter
== END 2024-11-20 11:51 | disposition home or self-care (01) ==
LOC: HO.HCS 11:17
PROVIDERS: PCP Internal Medicine; Visit Provider Internal Medicine Cardiovascular Disease
DX: E78.41 Elevated Lipoprotein(a) (principal); I25.10 Atherosclerotic heart disease of native coronary artery without angina pectoris
CPT/HCPCS: 99214

== ENCOUNTER → 2024-11-20 11:16 | Outpatient (BNVA) | payer OTHER, SELFPAY | PROVIDERS: PCP Internal Medicine; Visit Provider Internal Medicine Cardiovascular Disease | DX: E78.41 Elevated Lipoprotein(a) (principal); I25.10 Atherosclerotic heart disease of native coronary artery without angina pectoris | CPT/HCPCS: 99212 ==

== ENCOUNTER 2025-03-05 09:38 | Outpatient (REF) | payer OTHER, SELFPAY ==
[2025-03-05 09:55] LABS: MANUAL DIFF FLAG NO
[2025-03-05 10:16] LABS: Hematocrit 39.8 % (37.0-47.0); Hemoglobin 13.3 g/dl (12.0-16.0); Imm Gran Abs Auto 0.04 X10*3/uL (0.00-0.03); Imm Gran Pct Auto 0.7 % (0.0-0.4); Lymphocytes Absolute Auto 1.5 X10*3/uL (1.2-4.9); Mean Corpuscular HGB Conc 33.4 g/dl (31.0-35.0); Mean Corpuscular Hemoglobin 27.9 pg (27.0-33.0); Mean Corpuscular Volume 83.6 fL (80.0-98.0); NRBC Abs Auto 0.000 X10*3/uL (0.0-0.012); NRBC Pct Auto 0.0 /100WBC (0.0-0.2); Platelet Count 272 X10*3/uL (160-400); Red Blood Count 4.76 X10*6/uL (4.20-5.50); White Blood Count 5.8 X10*3/uL (4.8-10.8)
--- OUTSIDE RECORDS SUMMARY | 2025-03-05 10:57 | XMS_ITS | Clinical Summary ---
Author Organization [facility] Address [address] [place] [address] Care Team Providers Care Military Logistics Specialist Name Role Phone Marcela Rush MD Primary Care Provider Social History Tobacco Use Types Packs/Day Years [...] series) 2008 COVID-19 Vaccine (2023-2 5 season) 2024 HPV Vaccines (No Doses Required) Completed Pneumococcal Vaccine: Pediat newton (0-5 Years) and At-Risk Patients (6 to 49 Years) Aged Out No longer eligible b ased on patient's age to complete this topic Care Teams Military Logistics Specialist Relationship Specialty Start Date End Date Marcela Rush MD [address] [address] PCP - General Internal Medicine 02/01/24
--- OUTSIDE RECORDS SUMMARY | 2025-03-05 10:57 | XMS_ITS | Clinical Summary ---
Author Organization [address] [place] [address] [place] [phone] Phone Care Team Providers Care Statistics Tutor Name Role Phone Lucia Carey MD Primary Care Provider [phone] [phone] Allergies No known active allergies Medications desloratadine (CLARINEX) 5 mg tablet Take 1 tablet (5 mg total) by mouth 1 (one) time each day if needed (congestion ). 30 tablet 02/11/2025 Active Encounters Date Type Department Care Team Description 02/11/2025 10:30 AM EDT Office Visit Walk-In Clinic - [address] [address] Heber Louis PA Seasonal allergic rhinitis due to fungal spores (Primary Dx); Sore throat from Last 3 Months Social History Tobacco [...] Sign Reading Time Taken Comments Blood Pressure 122/89 02/11/2025 10:33 AM EDT Pulse 79 02/11/2025 10:33 AM EDT Temperature 36.8 C (98.2 F) 02/11/2025 10:33 AM EDT Respiratory Rate 18 10/15/2024 1:58 PM EDT Oxygen Saturation 96% 02/11/2025 10:33 AM EDT Inhaled Oxygen Concentration - - Weight 64.4 [...] Cervical Cancer Screening: P ap Smear 2010 HPV Vaccines (1 - 3-dose SCD M series) 2016 HIV Screening 06/13/2022 Hepatitis C Screening 06/13/2022 Social Influencers of Health Screening 06/13/2022 Depression Screening 04/26/2024 COVID-19 Vaccine ( - 2023-2 5 season) 2024 Influenza Vaccine (#1) 2024 RSV Immunization Adult Patie nts (1 - 1-dose 75+ series) 2064 HIB Vaccines Aged Out No longer eligi [...] Priority Date/Time Associated Diagnosis Comments POC RAPID STREP A Routine 02/11/2025 11: 07 AM EDT Sore throat from Last 3 Months Results * POC rapid strep A manually resulted (02/11/2025 11:07 AM EDT) Rapid Strep A Screen POC Negative Negative Swab Structure of anterior region of neck / Unknown 02/11/2025 11:07 AM EDT Heber SEN POINT OF CARE TEST ENTER/E DIT ORDERABLES Final Result from Last [address] [place] [place] [address] PLAN Care Teams Statistics Tutor Relationship Specialty Start Date End Date Lucia Carey MD [address] [place] [id number] PCP - General Internal Medicine 10/15/24
--- OUTSIDE RECORDS SUMMARY | 2025-03-05 10:57 | XMS_ITS ---
Author Name [facility] Organization Unknown Care Team Organization Name Specialty Phone Email Start Date End Da [facility] MATT CARTER Primary Care 02/17/2024 [facility] Susu Krishnamurthy Primary Care 03/03/2022 12/13/2023
--- OUTSIDE RECORDS SUMMARY | 2025-03-05 10:57 | XMS_ITS | Encounter Summary ---
Author Organization [facility] Address [address] [place] [address] Care Team Providers Care Grease Refining Supervisor Name Role Phone Marcela Rush MD Primary Care Provider [phone] [phone] Encounter Details Date Type Department Care Team (Late st Contact Info) Description 02/17/2024 Scanned Document [facility] Heart & Vascular [place] - Preventative Cardiology 85 [facility], [facility] [address] [place] [address] Mabel Keita MD 85 [facility] [address] [place] [phone] Social History Tobacco Use Types Packs/Day Years [...] on filedocumented in this encounter Care Teams Grease Refining Supervisor Relationship Specialty Start Date End Date Marcela Rush MD 1221 [facility] [address] [place] [address] PCP - General Internal Medicine 02/01/24 documented as of this encounter
--- OUTSIDE RECORDS SUMMARY | 2025-03-05 10:57 | XMS_ITS | Encounter Summary ---
Author Organization [facility] Address [address] [place] [address] Care Team Providers Care Promotions Officer Name Role Phone Marcela Rush MD Primary Care Provider +1 [phone] Encounter Details Date Type Department Care Team (Late st Contact Info) Description 05/23/2024 Scanned Document [facility] Heart & Vascular [place] - Preventative Cardiology 85 [facility], [email or web address] [address] [place] [address] Mabel Keita MD 85 [facility] [address] [place] [phone] Social History Tobacco Use Types Packs/Day Years [...] on filedocumented in this encounter Care Teams Promotions Officer Relationship Specialty Start Date End Date Marcela Rush MD 1221 [facility] [address] [place] [address] PCP - General Internal Medicine 02/01/24 documented as of this encounter
[2025-03-05 11:02] LABS: Alanine Aminotransferase 15 U/L (0-31); Albumin Level 4.5 g/dL (3.5-5.0); Alkaline Phosphatase 61 U/L (39-117); Anion Gap 13 (12-20); Aspartate Amino Transferase 26 U/L (5-31); Blood Urea Nitrogen 9 mg/dL (9-16); Calcium 9.7 mg/dL (8.4-10.2); Carbon Dioxide 22 mmol/L (22-29); Chloride 110 mmol/L (96-108); Cholesterol 150 mg/dL (<200); Estimated Glomerular Filt Rate > 60; HDL Cholesterol 62 mg/dL (>40); Potassium 4.4 mmol/L (3.3-5.1); Sodium 141 mmol/L (135-145); Total Protein 7.3 g/dL (6.5-8.0); Triglycerides 57 mg/dL (<150)
== END 2025-03-05 09:39 | disposition home or self-care (01) ==
LOC: HO.LAB 09:38
PROVIDERS: Absent Provider Internal Medicine; PCP Internal Medicine; Visit Provider Internal Medicine Cardiovascular Disease
DX: E78.41 Elevated Lipoprotein(a) (principal); I10 Essential (primary) hypertension; I25.10 Atherosclerotic heart disease of native coronary artery without angina pectoris; Z95.818 Presence of other cardiac implants and grafts
CPT/HCPCS: 36415; 80053; 80061; 83695; 84443; 85025

== ENCOUNTER 2025-04-12 10:06 | Outpatient (AMB) | payer OTHER, SELFPAY ==
--- NOTE | 2025-04-12 10:34 | A.OFFVIS_ITS ---
Vital Signs 04/12/25 10:36 Height 5 ft 3 in Weight 141 lb 1.533 oz BMI 25.0 BP 122/60 Blood Pressure Location Rt brachial Position Sitting Pulse 64 Pulse Source Pulse Oximeter Intake Visit Reasons: 4 mth f/up Labs Residential Case Manager Required: No Allergies No Known Allergies Allergy (Verified 04/12/25 10:36) Medication List - Last Reconciled 04/12/25 by Cary Lawrence NP-C atorvastatin 80 mg PO DAILY clopidogrel 75 mg PO DAILY evolocumab (Repatha SureClick) 140 mg subcut Q2W 90 days metoprolol succinate ER 25 mg PO DAILY HPI HPI 4 mth f/up Labs: Details: The patient is a 34 year old female presenting for follow-up of coronary artery disease. She underwent cardiac catheterization in April 2022 for chest discomfort, which revealed significant LAD stenosis treated with a stent, and normal left circumflex and RCA. A subsequent echocardiogram in April 2022 showed an EF of 60-65% with hypokinesis of the apical, mid-inferior, and mid- anterior septal segments. Her history is significant for hyperlipidemia and a family history of early CAD. Labs from 03/05/2025 showed an LDL of 77 and a lipoprotein(a) of 122. She reports not taking atorvastatin for two months prior to this test due to leg pain and swelling, which resolved after stopping the medication. A referral to a lipidology clinic was not pursued by her due to insurance coverage issues. Currently, she denies any chest pain, pressure, or heaviness, but reports experiencing intermittent episodes of a weird thumping in her chest. These episodes last for about three seconds, occur approximately once a week without a discernible pattern, and are not associated with triggers like coffee or sugar. Her current medications include atorvastatin, clopidogrel, Repatha, and metoprolol. She reports being less physically active during the winter, though she walks her dog and tries to walk during the day. [facility] Surgical History History of cardiac cath Family History Father Coronary artery disease Social History Alcohol intake: never Patient Tobacco Use Status: Never used Tobacco Review of Systems Const All systems reviewed & are unremarkable except as noted in HPI and below ENT Denies dizziness Card Details: brief heart palpitations Denies chest pain, Denies chest pain at rest, Denies chest pain with activity, Denies rapid heart rate, Denies pedal edema, Denies edema, Denies leg edema, Denies lightheadedness, Denies palpitations, Denies dyspnea, Denies dyspnea on exertion and Denies orthopnea Resp Denies cough, Denies dyspnea and Denies dyspnea on exertion GI Denies hematochezia and Denies change in stool character Musc Denies abnormal gait, Reports limited range of motion, Denies muscle cramps, Denies muscle weakness, Denies numbness, Denies radiating pain into limb, Denies stiffness and Denies tingling Neuro Denies abnormal gait, Denies dizziness, Denies numbness and Denies tingling Endo Denies palpitations Physical Exam Vital Signs: Last Vital Signs Pulse 64 04/12/25 10:36 BP 122/60 04/12/25 10:36 BMI result Body Mass Index 25.0 Const General: cooperative, healthy appearing, comfortable and no acute distress Orientation/consciousness: patient oriented x3 Neck Neck: Yes normal visual inspection Resp Effort & Inspection: normal respiratory effort Auscultation: clear to auscultation bilaterally, no crackles, no rales, no rhonchi and no wheezes Cardio Rate: regular rate Rhythm: regular rhythm Heart sounds: S1 normal heart sound present, S2 normal heart sound present, no murmurs and no rubs Neuro General: patient oriented x3 Extrem General: Yes normal to inspection Psych Appearance: grossly normal Mental Status: mental status grossly normal Speech and movement: Normal speech and movement present Assessment & Plan Assessment & Plan (1) Coronary artery disease: Code(s): I25.10 - Atherosclerotic heart disease of marshall coronary artery without angina pectoris Category: Medical Plan: History of premature CAD with catheterization 04/2022 with LAD stenosis, stent placement. Last echo April 2022 showed normal EF with regional wall motion abnormality. Condition stable since that time. Continue clopidogrel. Continue atorvastatin and Repatha with LDL goal less than 70. Continue metoprolol. Signs and symptoms of angina reviewed. Cardiology follow-up 6 months, sooner if needed. (2) Elevated lipoprotein(a): Code(s): E78.41 - Elevated Lipoprotein(a) Category: Medical Plan: History of elevated lipoprotein a. Most recent labs show lipoprotein a elevated at 122. She was not taking atorvastatin at the time of these labs. She will be restarting atorvastatin and assessing for symptoms. Continue Repatha. Previously it was recommended that she see lipids specialist in [place] but she is not able to attend due to insurance restrictions. (3) History of cardiac cath: Comment: 05/19/2022, proximal LAD 95% stenosis, FERDINAND placed, left dominant system, left circumflex and RCA normal. Code(s): Z98.890 - Other specified postprocedural states Category: Surgical Plan: As above (4) Stented coronary artery: Comment: Proximal LAD 05/19/2022 Code(s): Z95.5 - Presence of coronary angioplasty implant and graft Category: Surgical Plan: As above (5) Palpitations: Code(s): R00.2 - Palpitations Category: Medical Plan: Reports of brief heart palpitations lasting sec. No sustained rapid or irregular rates. She is likely feeling extrasystoles. Will check Holter monitor to assess for arrhythmia. Plan to call her with results. Plan I discussed with the patient her stable coronary artery disease status and the plan to continue current medications including clopidogrel and metoprolol. We reviewed her recent lipid panel and the importance of adding atorvastatin back to her regimen with Repatha to achieve a lower LDL goal. I educated her on the potential side effects of atorvastatin, such as muscle aches, and provided a plan to restart the 80 mg dose, with instructions to reduce it to a half pill (40 mg) if symptoms recur, as the goal is to remain on the highest tolerated dose. Regarding her palpitations, I explained they are likely benign premature beats but recommended a heart monitor for diagnostic clarity and her peace of mind. I explained the process for obtaining the monitor and that she would be contacted for scheduling. The patient agreed with the plan. We will follow up in six months unless the monitor results necessitate an earlier appointment. Orders: Orders ECG 5 day holter monitor Today I25.10 - Atherosclerotic heart disease of marshall coronary artery without angina pectoris, R00.2 - Palpitations Patient Instructions: - Please restart your atorvastatin 80 mg pill once a day. - If you notice a return of your leg pain or experience muscle aches, please cut the atorvastatin pill in half and take a 40 mg dose each day. - Continue taking your other medications as prescribed, including Repatha, clopidogrel (Plavix), and metoprolol. - We have ordered a heart monitor for you to check on the thumping feeling in your chest. The hospital's scheduling department will call you to set up an pascual ointment. - Try to be physically active as you feel comfortable. - Please schedule a follow-up appointment in our office in six months. Call us sooner if your symptoms get worse or if you have any new concerns. Patient was informed and verbally consented to the use of an ambient scribe for clinic note documentation during this visit. Visit time spent on chart review, interview, assessment, orders, documentation. Coding Level of Care Code Est Pt Level 4 (37145) Add On Problem Visit Only Diagnoses Coronary artery disease I25.10 Elevated lipoprotein(a) E78.41 History of cardiac cath Z98.890 Stented coronary artery Z95.5 Palpitations R00.2 Time Spent (min) 28
[2025-04-12 10:36] VITALS: BP 122/60; PULSE 64; BMI 25.0
--- OUTSIDE RECORDS SUMMARY | 2025-04-12 12:24 | XMS_ITS | Clinical Summary ---
Author Organization [address] [place] [address] [place] [phone] Phone Care Team Providers Care Apartment Assistant Manager Name Role Phone Lucia Carey MD Primary Care Provider [phone] Allergies No known active allergies Medications desloratadine (CLARINEX) 5 mg tablet Take 1 tablet (5 mg total) by mouth 1 (one) time each day if needed (congestion ). 30 tablet 02/11/2025 Active Encounters Date Type Department Care Team Description 02/11/2025 10:30 AM EDT Office Visit Walk-In Clinic - [address] [id number] [place] Seasonal allergic rhinitis due [...] Screening 06/13/2022 Depression Screening 04/26/2024 COVID-19 Vaccine (1 - 2024-2 6 season) 2024 Influenza Vaccine (#1) 2024 RSV [...] Final Result from Last [address] [address] [employer] Care Teams Apartment Assistant Manager Relationship Specialty Start Date End Date Lucia Carey MD [address] [place] [id number] PCP - General Internal Medicine 10/15/24
== END 2025-04-12 11:10 | disposition home or self-care (01) ==
LOC: HO.HCS 10:07
PROVIDERS: PCP Internal Medicine; Visit Provider Nurse Practitioner Family
DX: I25.10 Atherosclerotic heart disease of native coronary artery without angina pectoris (principal); E78.41 Elevated Lipoprotein(a); Z98.890 Other specified postprocedural states; Z95.5 Presence of coronary angioplasty implant and graft; R00.2 Palpitations
CPT/HCPCS: 99214

== ENCOUNTER → 2025-04-12 10:06 | Outpatient (BNVA) | payer OTHER, SELFPAY | PROVIDERS: PCP Internal Medicine; Visit Provider Nurse Practitioner Family | DX: I25.10 Atherosclerotic heart disease of native coronary artery without angina pectoris (principal); E78.41 Elevated Lipoprotein(a); R00.2 Palpitations; Z98.890 Other specified postprocedural states; Z95.5 Presence of coronary angioplasty implant and graft; Z79.899 Other long term (current) drug therapy | CPT/HCPCS: 99212 ==